=== PATIENT | female | born 1940 | race Caucasian/White ===

== ENCOUNTER 2021-06-27 13:20 | Emergency (ER) | payer MEDICARE, SELFPAY ==
--- NOTE | ~2021-06-27 | XR_ITS ---
XR abdomen/kub 1V DATE: 06/27/2021 13:46 INDICATION: Lower abdominal pain. Constipation for one week. TECHNIQUE: 2 portable supine AP views of the abdomen and pelvis COMPARISON: 09/20/2016 KUB FINDINGS: There is a prominent amount of fecal material within the colon but no evidence of bowel obs truction. The psoas shadows are intact. No visceromegaly is detected. Bilateral calcified pelvic phleboliths. Heart size is normal. The lung bases appear clear. Bilateral bipolar hip replacements. IMPRESSION: Prominent amount of fecal material in the colon; no bowel obstruction Reviewed, dictated and finalized at [facility]. Reviewed, dictated and finalized at location A. IMPRESSION: Prominent amount of fecal material in the colon; no bowel obstructi on
[2021-06-27 13:42] VITALS: BP 113/50; PULSE 70; RESP 14; TEMP 36.5; O2SAT 99
--- NOTE | 2021-06-27 13:46 | ED.ABDPAIN ---
HPI - Abdominal Pain General Chief Complaint: Abdominal Pain Stated Complaint: constipation Time Seen by Provider: 06/27/21 13:33 Source: patient and family Mode of arrival: ambulatory Limitations: no limitations History of Present Illness HPI narrative: Pt presents with constipation. Pt says she has not had BM in a week. Pt has slowed food intake and upped fluids and tried stool softeners and enemas without relief. Pt feels like something may be blocking her anal opening as she was unable to insert the enema. MD elicited complaint: abdominal pain Pertinent past history: constipation Onset (ago): day(s) (7) Pain Consistency: intermittent and now resolved Location: diffuse Severity: moderate Quality: cramping Radiation: none Migration to: no migration Exacerbating factors: nothing Relieving factors: nothing Associated symptoms: denies other symptoms Related Data Home Medications Medication Instructions Recorded Confirmed amlodipine 5 mg tablet 5 mg PO DAILY 12/06/20 12/06/20 bupropion HCl 150 mg 24 hr tablet, 150 mg PO QAM 12/06/20 12/06/20 extended release losartan 100 mg tablet 100 mg PO DAILY 12/06/20 12/06/20 lovastatin 10 mg tablet 10 mg PO DAILY 12/06/20 12/06/20 polyethylene glycol 3350 17 17 g PO DAILY 12/06/20 12/06/20 gram/dose oral powder tramadol 50 mg tablet 50 mg PO Q6H PRN 12/06/20 12/06/20 Allergies Allergy/AdvReac Type Severity Reaction Status Date / Time niacin Allergy Mild Unknown Verified 12/06/20 14:05 simvastatin Allergy Mild Unknown Verified 12/06/20 14:05 NSAIDS (Non-Steroidal Allergy Unknown DUE TO Verified 12/06/20 14:05 Anti-Inflamma KIDNEY DISEASE Review of Systems Review of Systems: All systems reviewed & are unremarkable except as noted in HPI and below PMFSH Past Medical History Medical History (Updated 06/27/21 @ 15:40 by Stan Seals III, DO) Constipation HTN (hypertension) Surgical History Surgical History Status post total knee replacement, right Family History Family History Father Hypertension Cerebrovascular accident Mother Hypertension Cerebrovascular accident Other Family history of arthritis Social History Social History (Updated 12/06/20 @ 14:09 by Mylene Atkins CMA) Smoking status: Former smoker Smoking end date: 03/18/85 Alcohol intake: current Substance use: never Exam Const: General: no acute distress Orientation/consciousness: patient oriented x3 Resp: Effort & Inspection: normal respiratory effort Auscultation: clear to auscultation bilaterally Cardio: Rate: regular rate Rhythm: regular rhythm GI: GI Palp: Yes Soft to palpation Auscultation: normal bowel sounds Other: no tenderness to palpation rectal exam external hemmorhoids Neuro: General: patient oriented x3, moves all extremities, no meningeal signs and no focal motor deficits Speech: normal speech Extrem: General: normal to inspection Psych: Appearance: grossly normal Mental Status: mental status grossly normal Thought content: Yes Normal thought content present Course Course Emergency Course: pt had some results with enema felt better will try golytely and send home Vital Signs Vital signs: Vital Signs Temperature 97.7 F 06/27/21 13:42 Pulse Rate 70 06/27/21 13:42 Respiratory Rate 14 06/27/21 13:42 Blood Pressure 113/50 L 06/27/21 13:42 Pulse Oximetry 99 06/27/21 13:42 Temperature 97.7 F 06/27/21 13:42 Pulse Rate 76 06/27/21 15:53 Respiratory Rate 12 06/27/21 15:53 Blood Pressure 139/75 06/27/21 15:53 Pulse Oximetry 98 06/27/21 15:53 MDM - Abdominal Pain Imaging Data Radiologist's impression: ITS Impressions Abdomen X-Ray 06/27/21 13:50 IMPRESSION: Prominent amount of fecal material in the colon; no bowel obstruction Discharge Plan Discharg
[2021-06-27 15:53] VITALS: BP 139/75; PULSE 76; RESP 12; O2SAT 98
== END 2021-06-27 15:54 | disposition home or self-care (01) ==
PROVIDERS: Emergency Provider Emergency Medicine; PCP Family Medicine
DX: K59.00 Constipation, unspecified (principal); I10 Essential (primary) hypertension; Z96.651 Presence of right artificial knee joint; Z87.891 Personal history of nicotine dependence
CPT/HCPCS: 74018; 99283

== ENCOUNTER 2022-08-14 15:18 | Emergency (ER) | payer MEDICARE, SELFPAY ==
--- NOTE | ~2022-08-14 | XR_ITS ---
EXAMINATION: XR knee LT min 4V DATE: 08/14/2022 17:09 INDICATION: Left knee pain TECHNIQUE: Anteroposterior, 2 oblique and crosstable lateral views of the left knee were obtained COMPARISON: None. FINDINGS: Alignment is normal. No fracture. Tricompartmental osteoarthritis with marginal osteophytes in all 3 compartments. There is at least moderate joint space narrowing in the medial compartment, severity o f which is best appreciated on the lateral projection. Severity of joint space narrowing can however be underestimated on nonweightbearing imaging. Small enthesophytes at the patellar insertion of the d istal quadriceps tendon. A few small loose osteochondral bodies in the recess posterior to the interc ondylar notch. No joint effusion/layering lipohemarthrosis. Soft tissues are unremarkable. IMPRESSION: 1. No left knee joint effusion or acute osseous abnormality. 2. At least moderate severity medial compartment predominant tricompartmental osteoarthritis. Reviewed, dictated and finalized at location A. IMPRESSION: 1. No left knee joint effusion or acute osseous abnormality. 2. At least moderate severity medial compartment predominant tricompartmental o steoarthritis.
--- NOTE | ~2022-08-14 | XR_ITS ---
EXAMINATION: XR hip LT 2V w AP pelvis DATE: 08/14/2022 17:09 INDICATION: Several months of left hip pain TECHNIQUE: Anteroposterior view of the pelvis and anteroposterior and frog-leg lateral views of the l eft hip were obtained. 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 Alignment remains essentially anatomic. No fracture. Mild bilateral sacroiliac a nd severe lower lumbar facet osteoarthritis. Soft tissues are unremarkable. IMPRESSION: 1. 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 No acute osseous abnormality . Reviewed, dictated and finalized at location A. IMPRESSION: 1. 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 No acu te osseous abnormality.
[2022-08-14 16:16] VITALS: BP 151/66; PULSE 57; RESP 16; TEMP 36.2; O2SAT 99
--- NOTE | 2022-08-14 19:26 | ED.LOWEXIN ---
HPI - Extremity Injury (Lower) General Chief Complaint: Extremity Injury, Lower Stated Complaint: LEFT LEG NUMBNESS SINCE THIS AM (INJURED 1 MO AGO) Time Seen by Provider: 08/14/22 19:03 History of Present Illness HPI Narrative: Patient is an 81-year-old female who presents ER with left knee and leg pain. She reports she has had injury for about a month. She has been taking tramadol. She was not having pain yesterday but then started having some today. It is mainly in her knee. Its worse with bending. She reports she does a lot of gardening which may have exacerbated it. No redness or swelling to the affected extremity. No fevers or chills or sweats. She has mild numbness over the anterior portion of the thigh. No low back pain. No saddle anesthesia or urinary retention/incontinence. Related Data Home Medications Medication Instructions Recorded Confirmed amlodipine 5 mg tablet 5 mg PO DAILY 12/06/20 10/17/21 bupropion HCl 150 mg 24 hr tablet, 150 mg PO QAM 12/06/20 10/17/21 extended release losartan 100 mg tablet 100 mg PO DAILY 12/06/20 10/17/21 tramadol 50 mg tablet 50 mg PO Q6H PRN 12/06/20 10/17/21 polyethylene glycol 3350 17 17 g PO DAILY PRN constipation 10/17/21 10/17/21 gram/dose oral powder (Miralax) Allergies Allergy/AdvReac Type Severity Reaction Status Date / Time niacin Allergy Mild Unknown Verified 08/14/22 18:25 simvastatin Allergy Mild Unknown Verified 08/14/22 18:25 NSAIDS (Non-Steroidal Allergy Unknown DUE TO Verified 08/14/22 18:25 Anti-Inflamma KIDNEY DISEASE Review of Systems Review of Systems: All systems reviewed & are unremarkable except as noted in HPI and below Constitutional: Constitutional: Denies chills and Denies fever(s) Gastrointestinal: Gastrointestinal: Denies abdominal pain, Denies nausea and Denies vomiting Musculoskeletal: Musculoskeletal: Reports back pain, Reports arthralgias, Denies joint swelling and Denies muscle cramps Integumentary/Breasts: Skin/Breast: Denies pruritus and Denies rash Neurologic: Denies headache(s), Denies focal weakness and Reports numbness PMFSH Past Medical History Medical History Constipation HTN (hypertension) Loose stools Surgical History Surgical History Status post total knee replacement, right Family History Family History Father Hypertension Cerebrovascular accident Mother Hypertension Cerebrovascular accident Other Family history of arthritis Social History Social History Smoking status: Never smoker Smoking end date: 03/18/85 Alcohol intake: current Substance use: never Lack of Transportation: No Lack of Food: Never True Current Housing: I Have Housing Concerned About Future Housing: No Difficulty Paying Gas/Electric Bills: No Difficulty Paying for Meds: No Currently Unemployed: No Education: High School Diploma/GED Difficulty w/ Childcare or Family Care: No Gender identity (if verbalized by the patient): Female Exam Narrative: GENERAL: Well-appearing, well-nourished, and in no acute distress. HEAD: Normocephalic, atraumatic. CHEST: Clear to auscultation. No respiratory distress. HEART: Regular rate and rhythm. Normal peripheral pulses. Back: No reproducible midline or paraspinal muscle tenderness of the T/L-spine. EXTREMITIES: Normal range of motion. No edema. Sensation intact. No effusion of the knee bilaterally. SKIN: Warm, dry, no rash. NEURO: Alert and oriented x3. PSYCH: Normal mood and affect. Course Course Emergency Course: Patient resting comfortably and anxious to leave. Discussed imaging and recommend follow-up with PCP. Discussed conservative treatment plan. Patient reports mild CKD and so should be on a low-dose and shor
== END 2022-08-14 19:51 | disposition home or self-care (01) ==
PROVIDERS: Emergency Provider Emergency Medicine; PCP Family Medicine
DX: M17.12 Unilateral primary osteoarthritis, left knee (principal); I12.9 Hypertensive chronic kidney disease with stage 1 through stage 4 chronic kidney disease, or unspecified chronic kidney disease; N18.9 Chronic kidney disease, unspecified; Z96.651 Presence of right artificial knee joint; Z96.642 Presence of left artificial hip joint
CPT/HCPCS: 73502; 73564; 99284

== ENCOUNTER 2022-12-07 09:48 | Emergency (ER) | payer MEDICARE, SELFPAY ==
[2022-12-07 10:02] VITALS: BP 166/81; PULSE 63; RESP 16; TEMP 36.8; O2SAT 100
[2022-12-07 10:05] VITALS: BP 166/81; PULSE 61; RESP 16; TEMP 36.7; O2SAT 100
--- NOTE | 2022-12-07 10:10 | ECG_ITS ---
Measurements Intervals Palmer Rate: 60 P: 53 MI: 166 QRS: -4 QRSD: 101 T: 51 QT: 405 QTc: 405 Interpretive Statements SINUS RHYTHM NORMAL ECG COMPARED TO ECG 09/19/2018 14:09:13 NO SIGNIFICANT CHANGES Electronically Signed On 12-07-2022 10:12:16 CDT by Leonid Weems D.O.
[2022-12-07 10:20] VITALS: PULSE 61
[2022-12-07 10:25] LABS: Basophils Percent Auto 0.2 % (0.2-1.2); Eosinophils Absolute Auto 0.1 K/mm3 (0-0.3); Eosinophils Percent Auto 0.4 % (0-4.4); Hematocrit 43.4 % (37.0-47.0); Hemoglobin 14.1 g/dL (12.0-15.0); Immature Granulocyte Absolute 0.08 K/mm3 (0.00-0.031); Immature Granulocyte Percent A 0.6 % (0-0.5); Lymphocytes Absolute Auto 1.27 K/mm3 (0.9-3.2); Lymphocytes Percent Auto 8.9 % (18.3-44.2); Mean Corpuscular HGB Conc 32.5 g/dl (32-36); Mean Corpuscular Hemoglobin 30.7 pg (26-34); Mean Corpuscular Volume 94.6 fl (80-100); Monocytes Absolute Auto 0.7 K/mm3 (0.1-0.6); Monocytes Percent Auto 4.8 % (2.6-8.5); Neutrophils Absolute Auto 12.1 K/mm3 (1.3-6.7); Neutrophils Percent Auto 85.1 % (45.5-73.1); Platelet Count Result 280 k/mm3 (150-375); Red Blood Count 4.59 M/mm3 (4.2-5.4); Red Cell Distribution Width 13.6 % (11.5-14.5); White Blood Count 14.2 K/mm3 (4.5-10.0)
[2022-12-07 10:36] LABS: Alanine Aminotransferase 24 U/L (6-35); Albumin Level 4.7 g/dL (3.5-5.1); Alkaline Phosphatase 85 U/L (38-126); Anion Gap 11 mmol/L (8-16); Aspartate Amino Transferase 25 U/L (14-36); Bilirubin,Total 0.7 mg/dL (0.2-1.3); Blood Urea Nitrogen 18 mg/dL (7-17); Calcium 9.7 mg/dL (8.4-10.2); Carbon Dioxide 24 mmol/L (22-30); Chloride 101 mmol/L (98-107); Estimated CRCL calculation 37 ml/min; Estimated Glomerular Filt Rate 60; Glucose 111 mg/dL (65-110); Potassium 3.7 mmol/L (3.4-5.0); Sodium 136 mmol/L (137-145)
--- NOTE | 2022-12-07 10:36 | ED.GENADULT ---
HPI - General Adult General Chief complaint: Arrhythmia/Palpitations Stated complaint: palpitations Time Seen by Provider: 12/07/22 10:13 History of Present Illness HPI narrative: Mylene Alvarez is an 82 y/o female who presents with reports of feeling her blood pressure rising off and on the past few weeks, along with some intermittent heart palpitations to her epigastric area, no chest pain/ shortness of breath/nausea/vomiting. No hx of TN/ cardiac stents/ cardiac surgeries/ not on anticoagulants Related Data Home Medications Medication Instructions Recorded Confirmed amlodipine 5 mg tablet 5 mg PO DAILY 12/06/20 10/18/22 bupropion HCl 150 mg 24 hr tablet, 150 mg PO QAM 12/06/20 10/18/22 extended release losartan 100 mg tablet 100 mg PO DAILY 12/06/20 10/18/22 tramadol 50 mg tablet 50 mg PO Q6H PRN 12/06/20 10/18/22 polyethylene glycol 3350 17 17 g PO DAILY PRN constipation 10/17/21 10/18/22 gram/dose oral powder (Miralax) levothyroxine 100 mcg capsule 100 mcg PO DAILY 10/09/22 10/18/22 Allergies Allergy/AdvReac Type Severity Reaction Status Date / Time niacin Allergy Mild Unknown Verified 12/07/22 09:49 simvastatin Allergy Mild Unknown Verified 12/07/22 09:49 NSAIDS (Non-Steroidal Allergy Unknown DUE TO Verified 12/07/22 09:49 Anti-Inflamma KIDNEY DISEASE Review of Systems Review of Systems: CONSTITUTIONAL: Denies fever, chills, or sweats. EYES: Denies visual changes, redness, or discharge. ENT: Denies rhinorrhea, congestion, sore throat, or otalgia. CARDIOVASCULAR: Denies chest pain, reports of palpitations off and on for the past 2 weeks no edema. RESPIRATORY: Denies cough or dyspnea. GASTROINTESTINAL: Denies abdominal pain, nausea, vomiting, or diarrhea. GENITOURINARY: Denies dysuria or hematuria. SKIN: Denies rash or itching. MUSCULOSKELETAL: Denies back pain, joint pain, or myalgia. NEUROLOGIC: Denies headache, numbness, dizziness, or weakness. PSYCHIATRIC: Denies anxiety or depression. [facility] Past Medical History Medical History Constipation HTN (hypertension) Loose stools Surgical History Surgical History Status post total knee replacement, right Family History Family History Father Hypertension Cerebrovascular accident Mother Hypertension Cerebrovascular accident Other Family history of arthritis Social History Social History Smoking status: Never smoker Smoking end date: 03/18/85 Alcohol intake: current Substance use: never Lack of Transportation: No Lack of Food: Never True Current Housing: I Have Housing Concerned About Future Housing: No Difficulty Paying Gas/Electric Bills: No Difficulty Paying for Meds: No Currently Unemployed: No Education: High School Diploma/GED Difficulty w/ Childcare or Family Care: No Living arrangements: with family Occupation/Education: retired Gender identity (if verbalized by the patient): Female Exam Narrative: GENERAL: Well-appearing, well-nourished, and in no acute distress. HEAD: Normocephalic, atraumatic. EYES: PERRLA and EOMI. ENT: Nares clear, no rhinorrhea or epistaxis. Mucous membranes moist. Oropharynx without tonsillar hypertrophy exudate or other lesions. NECK: Supple. No adenopathy or masses. No carotid bruits or JVD CHEST: Clear to auscultation. No respiratory distress. No wheezes rales or rhonchi HEART: Regular rate and rhythm. No murmur heard. Normal peripheral pulses. ABDOMEN: Soft, nontender, nondistended, normal active bowel sounds. EXTREMITIES: Normal range of motion. No edema. SKIN: Warm, dry, no rash. NEURO: No focal deficits. Alert and oriented x3. PSYCH: Normal mood and affect. Course Vital Signs Vital signs: Vital Signs Temperature 36.8 C
[2022-12-07 10:45] VITALS: PULSE 61; RESP 12; O2SAT 98
[2022-12-07 10:48] LABS: Troponin I < 0.012 ng/mL (0.000-0.034)
--- NOTE | 2022-12-07 11:16 | PC.NURSE ---
Pt ambulated to BR with assist. Pt reports dizziness while standing & walking. Denies CP with dizziness
[2022-12-07 12:19] VITALS: BP 127/63; PULSE 54; RESP 15; TEMP 36.9; O2SAT 97
[2022-12-07 12:33] LABS: Appearance Urine Clear (Clear); Bilirubin Urine Negative (Negative); Blood Urine Negative (Negative); Color Urine Yellow (Yellow); Glucose Urine UA Negative (Negative); Ketones Urine Negative (Negative); Leukocyte Esterase Ur Negative LEU/UL (Negative); Nitrate Urine Negative (Negative); Protein Urine Negative (Negative); Specific Grav Ur 1.005 (1.001-1.035); Urobilinogen Urine 0.2 mg/dL (<2.0)
[2022-12-07 12:43] LABS: Add Urine Microscopic? NO
[2022-12-07 13:45] VITALS: BP 158/87; PULSE 58; RESP 16; O2SAT 97
[2022-12-07 13:46] LABS: Prothrombin Time 13.6 Seconds (11.1-14.7)
[2022-12-07 13:59] LABS: Lipase 72 U/L (23-300)
[2022-12-07 14:11] LABS: Troponin I < 0.012 ng/mL (0.000-0.034)
[2022-12-07 14:14] LABS: NT Pro B Type Natriuretic Pept 292 pg/mL (19.9-100)
--- NOTE | 2022-12-11 16:34 | WPDHOLTEREM ---
Holter/Event Monitor Holter/Event Monitor Date of procedure: 12/07/22 Holter/Event Procedure: 48 Hr Holter Monitor Indications: Palpitations Conclusion: 1. 48 hour holter monitor on 12/07/22. 2. Underlying rhythm is sinus rhythm. HR range 43-98 bpm; average HR 62 bpm. HR at 43 bpm was at 23:50. 3. There are 330 premature supraventricular complexes. No supraventricular tachycardia. 4. There are 1,338 premature ventricular complexes, 1 ventricular couplet and 11 ventricular trigeminy. No ventricular tachycardia 5. No sinoatrial or atrioventricular blocks. No significant pauses greater than 2 seconds. 6. No symptoms available for correlation.
== END 2022-12-07 14:50 | disposition home or self-care (01) ==
PROVIDERS: Emergency Medicine; Emergency Provider Nurse Practitioner Family; PCP Family Medicine
DX: R00.2 Palpitations (principal); I10 Essential (primary) hypertension; E78.5 Hyperlipidemia, unspecified; Z96.651 Presence of right artificial knee joint; Z87.891 Personal history of nicotine dependence
CPT/HCPCS: 36415; 80053; 81003; 83690; 83880; 84484; 85025; 85610; 85730; 93005; 93225; 93226; 99284

== ENCOUNTER 2023-06-09 14:24 | Emergency (ER) | payer MEDICARE, SELFPAY ==
--- NOTE | ~2023-06-09 | CT_ITS ---
EXAMINATION: CT abdomen pelvis wo con DATE: 06/09/2023 15:56 INDICATION: Constipation TECHNIQUE: Computed tomography (CT) of the abdomen and pelvis was performed without intravenous contr ast. Automated exposure control and iterative reconstruction technique were employed. The dose-length product was 361.75 mGy-cm. COMPARISON: None. FINDINGS: Lower thorax: Ascending aortic ectasia. Coronary artery calcification. Liver: Normal. Biliary/Gallbladder: Gallbladder is normal. No bile duct dilation. Pancreas: No mass or duct dilation. Spleen: Granulomatous calcifications. Adrenals:No mass. Kidneys: No suspicious mass, obstructing stone, or hydronephrosis. GI tract: No small or large bowel dilation. Moderate volume of colonic fecal material. Normal appendi x. Diverticulosis without diverticulitis. Mesentery/Peritoneum: No ascites, mass, or free air. Retroperitoneum: No mass. Atherosclerotic abdominal aortic and/or arterial calcifications. Pelvis: Pelvic organs obscured by metal artifact from bilateral hip arthroplasties. Soft Tissues: Soft tissues and body wall unremarkable. Bones: No acute osseous finding. IMPRESSION: No acute abdominopelvic process detected. Moderate volume of colonic feces, correlate for clinical findings of constipation. Reviewed, dictated and finalized at location K. IMPRESSION: No acute abdominopelvic process detected. Moderate volume of colonic feces, correlate for clinical findings of constipati on.
[2023-06-09 14:43] VITALS: BP 179/71; PULSE 76; RESP 18; TEMP 36.4; O2SAT 100
--- NOTE | 2023-06-09 15:33 | ED.GENADULT ---
HPI - General Adult General Chief complaint: Unspecified Stated complaint: constipation Time Seen by Provider: 06/09/23 15:10 Source: patient Mode of arrival: ambulatory Limitations: no limitations History of Present Illness HPI narrative: 82-year-old female with long history of constipation presenting for constipation. Says it has been getting worse for the last few months and even worse for the last few days. She has been full in her abdomen as not wanting to eat for the last few days. Last bowel movement 4 days ago. Typically can manually disimpact herself, uses a variety of different laxatives and enemas but none have been successful today. Try to disimpact herself today and found no stool in the rectal vault she could feel. Related Data Home Medications Medication Instructions Recorded Confirmed amlodipine 5 mg tablet 5 mg PO DAILY 12/06/20 04/11/23 bupropion HCl 150 mg 24 hr tablet, 150 mg PO QAM 12/06/20 04/11/23 extended release losartan 100 mg tablet 100 mg PO DAILY 12/06/20 04/11/23 tramadol 50 mg tablet 50 mg PO Q6H PRN 12/06/20 04/11/23 polyethylene glycol 3350 17 17 g PO DAILY PRN constipation 10/17/21 04/11/23 gram/dose oral powder (Miralax) levothyroxine 100 mcg capsule 100 mcg PO DAILY 10/09/22 04/11/23 Allergies Allergy/AdvReac Type Severity Reaction Status Date / Time niacin Allergy Mild Unknown Verified 04/10/23 13:22 simvastatin Allergy Mild Unknown Verified 04/10/23 13:22 NSAIDS (Non-Steroidal Allergy Unknown DUE TO Verified 04/10/23 13:22 Anti-Inflamma KIDNEY DISEASE Review of Systems Review of Systems: All systems reviewed & are unremarkable except as noted in HPI and below PMFSH Past Medical History Medical History Constipation HTN (hypertension) Loose stools Surgical History Surgical History Status post total knee replacement, right Family History Family History Father Hypertension Cerebrovascular accident Mother Hypertension Cerebrovascular accident Other Family history of arthritis Social History Social History Smoking status: Never smoker Smoking end date: 03/18/85 Alcohol intake: current Substance use: never Do You Feel Safe in your Home?: Yes Lack of Transportation: No Lack of Food: Never True Current Housing: I Have Housing Concerned About Future Housing: No Difficulty Paying Gas/Electric Bills: No Difficulty Paying for Meds: No Currently Unemployed: No Education: High School Diploma/GED Difficulty w/ Childcare or Family Care: No Living arrangements: with family Occupation/Education: retired Gender identity (if verbalized by the patient): Female Exam Narrative: Constitutional: Generally well appearing, no acute distress Head: Atraumatic, no deformities. Eyes: Pupils equal, round, and reactive to light. Neck: Supple, no tracheal deviation, no JVD. ENMT: Mucous membranes moist Cardiovascular: S1, S2 auscultated. No murmurs, rubs, or gallops. No S3/S4. Normal Distal pulses. No peripheral edema. Respiratory: Lung sounds equal. No wheezes, rales, or rhonchi. Gastrointestinal: Abdomen was soft, nondistended Musculoskeletal: Normal muscle tone and bulk. No obvious deformities over extremities. Skin: No rashes. Neurological: Strength 5/5 in extremities. Distal sensation intact. Mental Status: Awake, alert and oriented x3. Follows commands Course Vital Signs Vital signs: Vital Signs Temperature 36.4 C 06/09/23 14:43 Pulse Rate 76 06/09/23 14:43 Respiratory Rate 18 06/09/23 14:43 Blood Pressure 179/71 H 06/09/23 14:43 Pulse Oximetry 100 06/09/23 14:43 Temperature 36.4 C 06/09/23 14:43 Pulse Rate 76 06/09/23 14:43 Respiratory Rate 18 06/09/23 14:43
== END 2023-06-09 16:40 | disposition home or self-care (01) ==
PROVIDERS: Emergency Provider Emergency Medicine; PCP Family Medicine
DX: K59.00 Constipation, unspecified (principal); I10 Essential (primary) hypertension; Z96.651 Presence of right artificial knee joint; Z87.891 Personal history of nicotine dependence
CPT/HCPCS: 74176; 99284

== ENCOUNTER 2023-09-24 09:32 | Outpatient (CLI) | payer MEDICARE, SELFPAY ==
[2023-09-24 13:06] LABS: Hematocrit 43.1 % (37.0-47.0); Mean Corpuscular HGB Conc 32.5 g/dl (32-36); Mean Corpuscular Hemoglobin 30.9 pg (26-34); Mean Corpuscular Volume 95.1 fl (80-100); Mean Platelet Volume 12.5 fl (7.4-10.4); Platelet Count Result 190 k/mm3 (150-375); Red Blood Count 4.53 M/mm3 (4.2-5.4); Red Cell Distribution Width 13.7 % (11.5-14.5); White Blood Count 4.9 K/mm3 (4.5-10.0)
[2023-09-24 13:15] LABS: Alanine Aminotransferase 17 U/L (6-35); Albumin Level 4.5 g/dL (3.5-5.1); Albumin Level 4.6 g/dL (3.5-5.1); Alkaline Phosphatase 88 U/L (38-126); Anion Gap 10 mmol/L (4-12); Anion Gap 11 mmol/L (4-12); Aspartate Amino Transferase 30 U/L (14-36); Bilirubin,Total 0.7 mg/dL (0.2-1.3); Blood Urea Nitrogen 15 mg/dL (7-17); Blood Urea Nitrogen 16 mg/dL (7-17); Calcium 9.5 mg/dL (8.4-10.2); Calcium 9.6 mg/dL (8.4-10.2); Carbon Dioxide 26 mmol/L (22-30); Chloride 101 mmol/L (98-107); Chloride 102 mmol/L (98-107); Cholesterol 175 mg/dL (0-200); Estimated Glomerular Filt Rate 47; Glucose 90 mg/dL (65-110); Glucose 91 mg/dL (65-110); HDL Direct 70 mg/dL; Phosphorus 3.2 mg/dL (2.5-4.5); Potassium 4.1 mmol/L (3.4-5.0); Sodium 138 mmol/L (137-145); Triglycerides 55 mg/dL (<150)
[2023-09-24 13:26] LABS: LDL Cholesterol Direct 85 mg/dL; Parathyroid Intact 32.4 pg/mL (7.5-53.5)
[2023-09-24 13:32] LABS: Creatinine Urine 46.6 mg/dL; Total Protein Urine Random 11 mg/dL; Ur Ttl Prot Creatinine Ratio 0.24 mg/mg (0-0.20)
[2023-09-25 18:29] LABS: Hemoglobin A1C 6.1 % (<5.7)
[2023-09-26 06:19] LABS: TSH QUEST 1.07 mIU/L (0.40-4.50)
[2023-09-27 13:24] LABS: Vitamin D 1,25 (OH)2 Total 47 pg/mL (18-72); Vitamin D2 1,25 (OH)2 <8 pg/mL; Vitamin D3 1,25 (OH)2 47 pg/mL
== END 2023-09-24 09:33 | disposition home or self-care (01) ==
PROVIDERS: PCP Family Medicine; Visit Provider Internal Medicine Nephrology
DX: E78.5 Hyperlipidemia, unspecified (principal); Z96.651 Presence of right artificial knee joint; E55.9 Vitamin D deficiency, unspecified; E89.0 Postprocedural hypothyroidism; R73.03 Prediabetes; I12.9 Hypertensive chronic kidney disease with stage 1 through stage 4 chronic kidney disease, or unspecified chronic kidney disease; N18.31 Chronic kidney disease, stage 3a
CPT/HCPCS: 36415; 80053; 80061; 80069; 82570; 82652; 83036; 83970; 84156; 84481; 85027; 86376

== ENCOUNTER 2024-01-26 06:36 | Emergency (ER) | payer MEDICARE, SELFPAY ==
--- NOTE | ~2024-01-26 | CT_ITS ---
CT of the Abdomen and Pelvis: Indication: Constipation Technique: 2.5 mm axial scans were obtained through the abdomen and pelvis following intravenous adm inistration of 100 cc of Omnipaque 350. Dose reduction technique was used on this scan by utilizing a utomated exposure control and iterative reconstruction technique. The dose-length product (DLP) was 2 64.28 mGy-cm. COMPARISON: 06/09/2023 Findings: Scans through the lung bases are unremarkable. The liver, spleen, pancreas, gallbladder, adrenals and kidneys are within normal limits. There are at herosclerotic calcifications of the aorta. No lymphadenopathy. No bowel obstruction or bowel wall thickening. Prominent stool suggests constipation. There is mild d iverticulosis. Small ventral fat-containing hernia present superior to the umbilicus. Images through the pelvis are degraded by streak artifact from bilateral hip arthroplasty. No pelvic mass evident. Urinary bladder grossly normal. No ascites evident. Impression: Constipation. No other acute abnormality evident. Small ventral fat-containing hernia, superior to the umbilicus. Reviewed, dictated and finalized at location M. L PRODUCER Impression: Constipation. No other acute abnormality evident. Small ventral fat-containing hernia, superior to the umbilicus.
[2024-01-26 06:45] VITALS: BP 182/86; PULSE 78; RESP 15; TEMP 36.7; O2SAT 99
[2024-01-26 07:18] VITALS: BP 171/72; PULSE 67; RESP 18; O2SAT 100
[2024-01-26 07:22] LABS: Basophils Absolute Auto 0.1 K/mm3 (0.0-0.1); Basophils Percent Auto 0.9 % (0.2-1.2); Eosinophils Absolute Auto 0.1 K/mm3 (0-0.3); Eosinophils Percent Auto 1.8 % (0-4.4); Hemoglobin 13.9 g/dL (12.0-15.0); Immature Granulocyte Absolute 0.07 K/mm3 (0.00-0.031); Immature Granulocyte Percent A 1.2 % (0-0.5); Lymphocytes Absolute Auto 1.17 K/mm3 (0.9-3.2); Lymphocytes Percent Auto 20.7 % (18.3-44.2); Mean Corpuscular HGB Conc 32.3 g/dl (32-36); Mean Corpuscular Hemoglobin 30.4 pg (26-34); Mean Corpuscular Volume 94.1 fl (80-100); Mean Platelet Volume 10.7 fl (7.4-10.4); Monocytes Absolute Auto 0.5 K/mm3 (0.1-0.6); Monocytes Percent Auto 9.4 % (2.6-8.5); Neutrophils Absolute Auto 3.7 K/mm3 (1.3-6.7); Platelet Count Result 237 k/mm3 (150-375); Red Blood Count 4.57 M/mm3 (4.2-5.4); Red Cell Distribution Width 13.7 % (11.5-14.5); White Blood Count 5.7 K/mm3 (4.5-10.0)
--- NOTE | 2024-01-26 07:24 | ED.GENADULT ---
HPI - General Adult General Chief complaint: Unspecified Stated complaint: Constipated; last BM few days Time Seen by Provider: 01/26/24 06:53 History of Present Illness HPI narrative: 83-year-old female with history of alternating constipation and diarrhea presents emergency department for evaluation for constipation over the course of the last week. patient has been taking Dulcolax and MiraLax but states she has not had a significant bowel movement. Patient does report the sensation of needing to have a bowel movement. Patient also describes abdominal cramping. Patient appears to be in no distress and is resting comfortably. Patient does not have a GI physician. Related Data Home Medications Medication Instructions Recorded Confirmed polyethylene glycol 3350 17 17 g PO DAILY PRN constipation 10/17/21 10/09/23 gram/dose oral powder (Miralax) levothyroxine 100 mcg capsule 100 mcg PO DAILY 10/09/22 10/09/23 cholecalciferol (vitamin D3) 25 25 mcg PO DAILY 09/24/23 10/09/23 mcg (1,000 unit) capsule Allergies Allergy/AdvReac Type Severity Reaction Status Date / Time niacin Allergy Mild Itching Verified 01/26/24 06:48 simvastatin Allergy Mild Muscle Pain Verified 01/26/24 06:48 NSAIDS (Non-Steroidal Allergy Unknown DUE TO Verified 01/26/24 06:48 Anti-Inflamma KIDNEY DISEASE Review of Systems Review of Systems: All systems reviewed & are unremarkable except as noted in HPI and below PMFSH Past Medical History Medical History Constipation HTN (hypertension) Loose stools Surgical History Surgical History Status post total knee replacement, right Family History Family History Father Hypertension Heart disease Mother Hypertension Cerebrovascular accident Other Family history of arthritis Social History Social History Years smoked: 15 Smoking status: Never smoker Smoking end date: 03/18/85 Alcohol intake: current Drinks per week: 2 Alcohol use details: ivory Substance use: never Do You Feel Safe in your Home?: Yes Lack of Transportation: No Lack of Food: Never True Current Housing: I Have Housing Concerned About Future Housing: No Difficulty Paying Gas/Electric Bills: No Difficulty Paying for Meds: No Currently Unemployed: No Education: High School Diploma/GED Difficulty w/ Childcare or Family Care: No Living arrangements: with family Occupation/Education: retired Gender identity (if verbalized by the patient): Female Exam Narrative: APPEARANCE: Well appearing, no pain, no distress, well-nourished. HEAD: normocephalic, atraumatic. EYES: PERRLA/EOMI, conjunctivae clear. NOSE: Normal no drainage EARS:TMS clear with good light reflex. THROAT: Pharynx clear, no exudate. NECK: Supple. No adenopathy, no masses. RESPIRATORY: Airway patent, respirations nonlabored. Clear to auscultation bilaterally, no rales, rhonchi, wheezing. CARDIOVASCULAR: Regular rate and rhythm without murmurs rubs or gallops. ABDOMINAL: Soft, nontender, nondistended, normal bowel sounds MUSCULOSKELETAL: Moves all extremities. Strength/ROM intact, No edema, No calf tenderness. NEURO: Alert. Cranial nerves II through XII intact. Good gait. Good coordination SKIN: Warm, dry. Normal Color Rectal exam: No impacting stool within the rectal vault Course Vital Signs Vital signs: Vital Signs Temperature 98.1 F 01/26/24 06:45 Pulse Rate 78 01/26/24 06:45 Respiratory Rate 15 01/26/24 06:45 Blood Pressure 182/86 H 01/26/24 06:45 Pulse Oximetry 99 01/26/24 06:45 Oxygen Delivery Room Air 01/26/24 06:45 Temperature 98.1 F 01/26/24 06:45 Pulse Rate 62 01/26/24 09:32 Respiratory Rate 17 01/26/24 09:32 Blood Pressure 157/79 H 01/26/24 09:32 Pulse Oximetry 100 01/26/24 09:32 Oxygen Delivery Room Air 01/26/24 06:45 Medical Decision Making [facility] Narrative Medical decision making narrative: [age] old female presents to the emergency department for evaluation for constipation. Patient is afebrile with no leukocytosis and hemoglobin of 13.9. Patient has an INR 1.0. No acute abnormalities on the patient's CMP UA was negative for infection. CT abdomen pelvis shows constipation with no other acute abnormality. Digital rectal exam revealed no rectal stool ball amenable to disimpaction. Patient was advised to increase her MiraLax dosing. Patient was also encouraged close follow-up with her primary care physician. All questions concerns were addressed. Differential Diagnosis Differential Diagnosis: Colitis, diverticulitis, obstruction, constipation Vital Signs Vital Signs: Vital Signs Temperature 98.1 F 01/26/24 06:45 Pulse Rate 78 01/26/24 06:45 Respiratory Rate 15 01/26/24 06:45 Blood Pressure 182/86 H 01/26/24 06:45 Pulse Oximetry 99 01/26/24 06:45 Oxygen Delivery Room Air 01/26/24 06:45 Temperature 98.1 F 01/26/24 06:45 Pulse Rate 62 01/26/24 09:32 Respiratory Rate 17 01/26/24 09:32 Blood Pressure 157/79 H 01/26/24 09:32 Pulse Oximetry 100 01/26/24 09:32 Oxygen Delivery Room Air 01/26/24 06:45 Lab Data Lab results reviewed: Yes I reviewed the patient's lab results. 01/26/24 07:15 01/26/24 07:15 Labs: Lab Results 01/26/24 01/26/24 Range/Units 07:15 07:44 WBC 5.7 (4.5-10.0) K/mm3 RBC 4.57 (4.2-5.4) M/mm3 Hgb 13.9 (12.0-15.0) g/dL Hct 43.0 (37.0-47.0) % MCV 94.1 (80-100) fl MCH 30.4 (26-34) pg MCHC 32.3 (32-36) g/dl RDW 13.7 (11.5-14.5) % Plt Count 237 (150-375) k/mm3 MPV 10.7 H (7.4-10.4) fl Immature Gran % (Auto) 1.2 H (0-0.5) % Neut % (Auto) 66.0 (45.5-73.1) % Lymph % (Auto) 20.7 (18.3-44.2) % Rich % (Auto) 9.4 H (2.6-8.5) % Eos % (Auto) 1.8 (0-4.4) % Baso % (Auto) 0.9 (0.2-1.2) % Lymph # (Auto) 1.17 (0.9-3.2) K/mm3 Rich # (Auto) 0.5 (0.1-0.6) K/mm3 Eos # (Auto) 0.1 (0-0.3) K/mm3 Baso # (Auto) 0.1 (0.0-0.1) K/mm3 Abs Immat Gran (auto) 0.07 H (0.00-0.031) K/mm3 Absolute Neuts (auto) 3.7 (1.3-6.7) K/mm3 Absolute Nucleated RBC 0.000 (0.0-0.012) K/mm3 Nucleated RBC % 0.0 (0.0-0.2) % PT 13.5 (11.1-14.7) Seconds INR 1.0 APTT 28.3 (22.3-36.8) Seconds Sodium 138 (137-145) mmol/L Potassium 3.9 (3.4-5.0) mmol/L Chloride 104 (98-107) mmol/L Carbon Dioxide 25 (22-30) mmol/L Anion Gap 9 (4-12) mmol/L BUN 11 (7-17) mg/dL Creatinine 0.90 (0.7-1.0) mg/dL Estim Creat Clear Calc 35 ml/min Estimated GFR 60 (59 - ) Glucose 101 (65-110) mg/dL Calcium 9.6 (8.4-10.2) mg/dL Total Bilirubin 0.6 (0.2-1.3) mg/dL AST 23 (14-36) U/L ALT 17 (6-35) U/L Alkaline Phosphatase 75 (38-126) U/L Total Protein 8.0 (6.3-8.2) g/dL Albumin 4.2 (3.5-5.1) g/dL Urine Color Yellow (Yellow) Urine Appearance Clear (Clear) Urine pH 7.5 (5.0-9.0) Ur Specific [place] 1.005 (1.001-1.035) Urine Protein Negative (Negative) mg/dL Urine Glucose (UA) Negative (Negative) mg/dL Urine Ketones Negative (Negative) mg/dL Ur Blood (Man) Negative (Negative) Urine Nitrate Negative (Negative) Urine Bilirubin Negative (Negative) Urine Urobilinogen 0.2 (<2.0) mg/dL Leukocyte Esterase Rfl Negative (Negative) WARREN/UL Imaging Data Radiologist's impression: Impressions Abdomen/Pelvis CT 01/26/24 08:43 Impression: Constipation. No other acute abnormality evident. Small ventral fat-containing hernia, superior to the umbilicus. Discharge Plan Discharge Clinical Impression: Constipation Patient Disposition: Home, Self-Care Condition: Stable Instructions: Antibiotic Form, Constipation (ED) Additional Instructions: Increase your natural fiber intake. Increase your MiraLax dosing to at least 3 doses a day. Increase your water intake. If these do not help to resolve your constipation then I do recommend magnesium citrate as directed. Have close follow-up with your primary care physician. If you have any worsening symptoms then please call or return to the emergency department. Prescriptions: No Action polyethylene glycol 3350 [Miralax] 17 gram/dose powder 17 g PO DAILY PRN (Reason: constipation) levothyroxine 100 mcg capsule 100 mcg PO DAILY cholecalciferol (vitamin D3) 25 mcg (1,000 unit) capsule 25 mcg PO DAILY amlodipine 5 mg tablet 5 mg PO DAILY Qty: 90 1RF losartan 100 mg tablet 100 mg PO DAILY Qty: 90 1RF lovastatin 10 mg tablet 10 mg PO DAILY Qty: 90 1RF tramadol 50 mg tablet 50 mg PO Q6H PRN (Reason: pain) Qty: 60 0RF bupropion HCl 300 mg tablet extended release 24 hr 300 mg PO QAM Qty: 90 1RF diphenoxylate-atropine 2.5-0.025 mg tablet 1 tablet PO DAILY Qty: 30 1RF Follow-up/Referrals: Karine Schneider DO [Primary Care Provider] -
[2024-01-26 07:37] LABS: Prothrombin Time 13.5 Seconds (11.1-14.7)
[2024-01-26 07:38] LABS: Partial Thromboplastin Time 28.3 Seconds (22.3-36.8)
[2024-01-26 07:40] LABS: Alanine Aminotransferase 17 U/L (6-35); Albumin Level 4.2 g/dL (3.5-5.1); Alkaline Phosphatase 75 U/L (38-126); Anion Gap 9 mmol/L (4-12); Aspartate Amino Transferase 23 U/L (14-36); Bilirubin,Total 0.6 mg/dL (0.2-1.3); Blood Urea Nitrogen 11 mg/dL (7-17); Calcium 9.6 mg/dL (8.4-10.2); Carbon Dioxide 25 mmol/L (22-30); Chloride 104 mmol/L (98-107); Estimated CRCL calculation 35 ml/min; Estimated Glomerular Filt Rate 60; Glucose 101 mg/dL (65-110); Potassium 3.9 mmol/L (3.4-5.0); Sodium 138 mmol/L (137-145)
[2024-01-26 07:50] LABS: Add Urine Microscopic? NO; Appearance Urine Clear (Clear); Bilirubin Urine Negative (Negative); Blood Urine Negative (Negative); Color Urine Yellow (Yellow); Glucose Urine UA Negative (Negative); Ketones Urine Negative (Negative); Leukocyte Esterase Ur Negative LEU/UL (Negative); Nitrate Urine Negative (Negative); Protein Urine Negative (Negative); Specific Grav Ur 1.005 (1.001-1.035); Urobilinogen Urine 0.2 mg/dL (<2.0); pH Urine 7.5 (5.0-9.0)
[2024-01-26 09:32] VITALS: BP 157/79; PULSE 62; RESP 17; O2SAT 100
== END 2024-01-26 09:33 | disposition home or self-care (01) ==
PROVIDERS: Emergency Provider Emergency Medicine; PCP Family Medicine
DX: K59.00 Constipation, unspecified (principal); R10.9 Unspecified abdominal pain; I10 Essential (primary) hypertension; Z96.651 Presence of right artificial knee joint; Z87.891 Personal history of nicotine dependence; K43.9 Ventral hernia without obstruction or gangrene
CPT/HCPCS: 36415; 74177; 80053; 81003; 85025; 85610; 85730; 99284; Q9967

== ENCOUNTER 2024-03-30 10:08 | Outpatient (CLI) | payer MEDICARE, SELFPAY ==
[2024-03-30 13:46] LABS: Hematocrit 41.4 % (37.0-47.0); Hemoglobin 13.1 g/dL (12.0-15.0); Mean Corpuscular HGB Conc 31.6 g/dl (32-36); Mean Corpuscular Hemoglobin 30.9 pg (26-34); Mean Corpuscular Volume 97.6 fl (80-100); Mean Platelet Volume 11.4 fl (7.4-10.4); Platelet Count Result 245 k/mm3 (150-375); Red Blood Count 4.24 M/mm3 (4.2-5.4); Red Cell Distribution Width 14.1 % (11.5-14.5); White Blood Count 5.8 K/mm3 (4.5-10.0)
[2024-03-30 14:20] LABS: Creatinine Urine 44.9 mg/dL; Total Protein Urine Random 13 mg/dL; Ur Ttl Prot Creatinine Ratio 0.29 mg/mg (0-0.20)
[2024-03-30 14:46] LABS: Parathyroid Intact 37.7 pg/mL (14.5-75.2)
[2024-03-30 14:51] LABS: Albumin Level 4.1 g/dL (3.5-5.1); Anion Gap 4 mmol/L (4-12); Blood Urea Nitrogen 22 mg/dL (7-17); Calcium 9.2 mg/dL (8.4-10.2); Carbon Dioxide 30 mmol/L (22-30); Chloride 104 mmol/L (98-107); Estimated Glomerular Filt Rate 55; Glucose 67 mg/dL (65-110); Phosphorus 3.9 mg/dL (2.5-4.5); Potassium 4.2 mmol/L (3.4-5.0); Sodium 138 mmol/L (137-145)
== END 2024-03-30 10:09 | disposition home or self-care (01) ==
LOC: ANHGOSHLAB 10:09
PROVIDERS: PCP Family Medicine; Visit Provider Internal Medicine Nephrology
DX: N18.31 Chronic kidney disease, stage 3a (principal)
CPT/HCPCS: 36415; 80069; 82570; 83970; 84156; 85027

== ENCOUNTER 2024-05-26 10:10 | Outpatient (CLI) | payer MEDICARE, SELFPAY ==
--- OUTSIDE RECORDS SUMMARY | 2024-05-26 11:28 | XMS_ITS | Clinical Summary ---
Author Organization [facility] Address [address] [place] [id number] Care Team Providers Care Welding Lead Burner Name Role Phone Luis Zaman MD Primary Care Provider [phone] Allergies Active Allergy Reactions Criticality Noted Date Comments Niacin Other (See comments) Reaction: Other, Simvastatin Other (See comments),Diarrhea,Vomit ing Reaction: Other, , Reaction: Diarrhea, Vomiting, , Medications losartan (COZAAR) 100 mg tablet take 1 tablet by oral route every day 0 0 7 Active lovastatin (MEVACOR) 10 mg tablet take 1 tablet by oral route every day with the evening meal 0 0 7 Active buPROPion SR (WELLBUTRIN SR) 150 mg 12 hr tablet take 1 tablet by oral route 2 times every day 0 0 7 Active amLODIPine (NORVASC) 5 mg tablet 7 Active hydroCHLOROthiazid e (MICROZIDE) 12.5 mg capsule 7 Active traMADoL (ULTRAM) 50 mg tablet 0 Active carvediloL (COREG) 3.125 mg tablet Take 1 tablet (3.125 mg total) by mouth 2 (two) times a day 3 Active diphenoxylate-atro pine (LOMOTIL) 2.5-0.025 mg per tabletIndications: diarrhea Take 1 tablet by mouth 4 (four) times a day as needed for diarrhea Active meclizine (ANTIVERT) 25 mg tablet Take 1 tablet (25 mg total) by mouth 3 (three) times a day as needed for dizziness Active meloxicam (MOBIC) 15 mg tablet Take 1 tablet (15 mg total) by mouth daily Active metaxalone (SKELAXIN) 800 mg tabletIndications: Muscle Spasm Take 1 tablet (800 mg total) by mouth 3 (three) times a day Active cholecalciferol 25 mcg (1,000 unit) tablet Take 1 tablet (1,000 Units total) by mouth daily Active polyethylene glycol (MIRALAX) 17 gram packetIndications: constipation Take 1 packet (17 g total) by mouth daily Active levothyroxine (SYNTHROID) 100 mcg tabletIndications: Postablative hypothyroidism Take 1 tablet (100 mcg total) by mouth daily 90 tablet 3 4 09/23/19 25 Active Active Problems Problem Noted Date Diagnosed Date VPC's (ventricular premature complexes) 05/08/19 24 Postablative hypothyroidism 04/17/2016 Overview (06/22/2016): Postablative hypothyroidism Assessment & Plan (09/23/2023 12:36 PM CDT): Chronic, unknown status Patient currently on levothyroxine 100 mcg oral daily Recheck thyroid function test today and further plans based on it Pre-diabetes 04/17/2016 Overview (06/22/2016): Type 2 diabetes mellitus without complication, without long-term current use of insulin Assessment & Plan (09/23/2023 12:36 PM CDT): Chronic, unknown status Recheck hemoglobin A1c Counseled on diet and exercise 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 Overview (06/22/2016): Nontoxic multinodular goiter Assessment & Plan (09/23/2023 12:36 PM CDT): Longstanding history of multinodular goiter since 2006 Last thyroid ultrasound in 2018 did not appreciate significant thyroid nodules No compressive symptoms Continue to clinically monitor for now 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 Diplopia 02/09/2015 Meningioma 09/01/2013 Edema of eyelid 07/09/2013 Contact dermatitis of eyelid 06/24/2013 Unspecified inflammation of eyelid 05/20/2013 Immunizations Immunization Administration Dates Next Due Influenza, Trivalent, Preservative Free, Intramu scular 12/08/2013 Surgical History Surgery Date Site/Laterality Comments REPLACEMENT TOTAL KNEE Right TOTAL HIP ARTHROPLASTY Bilateral EYE SURGERY due to graves disease Medical History Medical History Date Comments PVC's (premature ventricular contractions) Hypertension Thyroid disease Hyperlipidemia Graves disease Family History Medical History Relation Name Comments Heart disease Father Heart attack Mother Stroke Mother Relation Name Status Comments Father Mother Social History Tobacco Use Types Packs/Day Years Used Date Smoking Tobacco: Former Cigarettes Smokeless Tobacco: Never Tobacco Cessation:Counseling Given: Not Answered Personal Safety Answer Date Recorded Getting School Help Needed Not on file 03/01 Comments Unknown Sex and Gender Information Value Date Recorded Sex Assigned at Not on file Legal Sex Female 7:21 PM ORDER EXPEDITER Gender Identity Not on file Sexual Orientation Not on file Obstetrics History Last Filed Vital Signs Vital Sign Reading Time Taken Comments Blood Pressure 118/70 09/23/2023 11:24 AM CDT Pulse 61 09/23/2023 11:24 AM CDT Temperature - - Respiratory Rate 16 09/23/2023 11:24 AM CDT Oxygen Saturation 99% 05/08/2023 11:01 AM ORDER EXPEDITER Inhaled Oxygen Concentration - - Weight 62.1 kg (137 lb) 09/23/2023 11:24 AM CDT Height 165.1 cm (5' 5 ) 09/23/2023 11:24 AM CDT Body Mass Index 22.8 09/23/2023 11:24 AM CDT Plan of Treatment Health Maintenance Due Date Last Done Comments Osteoporosis Screening-Bone Density Scan 1940 Dilated Eye Exam 1940 Foot Exam 1940 DTaP/Tdap/Td Vaccine (1 - Tdap) 09/17/1950 Hepatitis B Screening 09/17/1957 Zoster Vaccine (1 of 2) 09/17/1989 Well Visit 65+ 09/17/2004 Lipid Panel 03/08/2015 03/08/2014 Pneumococcal vaccine 65+ (2 of 2 - PPSV23) 01/30/2017 12/05/2016 Depression Screening 10/15/2017 10/15/2016 eGFR 04/18/2019 04/18/2018 Influenza Vaccine (#1) 2023 1, 11/18/2019, 01/07/2015, Additional history exists Hemoglobin A1C 03/26/2024 09/24/2023, 07/0 09/2022, 09/21/2021, Additional history exists Fall Risk Assessment 09/22/2024 09/23/2023 Albumin Creatinine Ratio, Urine 09/23/2024 4 Procedures Procedure Name Priority Date/Time Associated Diagnosis Comments HM HEMOGLOBIN A1C Routine 09/24/2023 HM ALBUMIN CREATININE RATIO, URINE Routine 09/24/2023 EGFR Routine 04/18/2018 11:11 AM ORDER EXPEDITER LIPID PANEL Routine 03/08/2014 10:57 AM ORDER EXPEDITER from Last 3 Months or Most Recently Relevant to Health Maintenance Results * HM ALBUMIN CREATININE RATIO, URINE (09/24/2023) SCRIBED HM ALBUMIN CREATININE RATIO, URINE 0.24 EXTERNAL LAB 09/24/2023 Historical Provider HEALTH MAINTENANCE Edited Result - Final EXTERNAL LAB * HM HEMOGLOBIN A1C (09/24/2023) SCRIBED Hemoglobin A1c 6.1 % EXTERNAL LAB 09/24/2023 Historical Provider HEALTH MAINTENANCE Final Result EXTERNAL LAB * eGFR (04/18/2018 11:11 AM ORDER EXPEDITER) eGFR 50 mL/min/1.7 3 m2 JENNY BARONE (RADHA) Comment: Interpretive Data Reference Interval Normal >/= 90 mL/min/1.73m2 Mildly decreased* 60 - 89 mL/min/1.73m2 Mildly to moderately decreased 45 - 59 mL/min/1.73m2 Moderately to severely decreased 30 - 44 mL/min/1.73m2 Severely decreased 15 - 29 mL/min/1.73m2 Kidney Failure < 15 mL/min/1.73m2 *Relative to young adult level If -Peruvian multiply value by 1.16. Estimated glomerular filtration rate is determined by the CKD-EPI equation recommended by the National Kidney Foundation (KDIGO 2012 Clinical Practice Guideline for the Evaluation and Management of Chronic Kidney Disease. Kidney Intnl Suppl Mar 2012;3:1). The CKD-EPI equation should not be used for patients with unstable renal function and has not been validated in children and those over 70. Current interpretive data was last reviewed 2015. Blood specimen (specimen) 04/18/2018 11:11 AM ORDER EXPEDITER 04/18/2018 2:14 PM ORDER EXPEDITER Narrative JENNY BARONE (RADHA) - 04/18/2018 2:43 PM ORDER EXPEDITER Alban Sanchez MD LAB BLOOD ORDERABLES Final R esult JENNY LIZABETH ([place]) [address] [facility] [place] [address] * (ABNORMAL) Lipid panel (03/08/2014 10:57 AM ORDER EXPEDITER) Triglycerides 74 0 - 199 mg/dL 03/08/2014 11:53 AM [facility] [employer] HISTORICAL RESULTS Comment:12 hr pc highly wne mmended for Triglyceride Cholesterol 197 0 - 199 mg/dL 03/08/2014 11:53 AM [facility] [employer] HISTORICAL RESULTS Comment: Borderline: 200-239 High Risk: >239 HDL Cholesterol 70(H) 40 - 60 mg/dL 03/08/2014 11:53 AM [facility] [employer] HISTORICAL RESULTS Comment: Major Risk < 40 mg/dL Moderate Risk 40-60 mg/dL Negative Risk > 60 mg/dL LDL Cholesterol, Calc 112 0 - 130 mg/dL 03/08/2014 11:53 AM [facility] [employer] HISTORICAL RESULTS Comment:High Risk > 159 mg/d L Cholesterol/HDL Ratio 2.8 03/08/2014 11:53 AM [facility] [employer] HISTORICAL RESULTS Comment: Cholesterol / HDL Ratio 3.5:1 or less is desirable. Cholesterol / HDL Ratio greater than 5:1 is considered higher risk for developing heart disease. 03/08/2014 10:5 7 AM ORDER EXPEDITER 03/08/2014 11:22 AM ORDER EXPEDITER Narrative [facility] HISTORICAL RESULTS - 03/08/2014 11:53 AM ORDER EXPEDITER 12P Alban Sanchez MD LAB BLOOD ORDERABLES Final R esult [facility] HISTORICAL RESULTS from Last 3 Months or Most Recently Relevant to Health Maintenance Insurance MEDICARE [employer]ICARE [employer] Care Teams Welding Lead Burner Relationship Specialty Start Date End Date Luis Zaman MD [address] [place] [address] [facility] [place] [address] [facility] - General 04/17/16
--- OUTSIDE RECORDS SUMMARY | 2024-05-26 11:28 | XMS_ITS | Clinical Summary ---
Author Organization [facility] Address [address] [place] [id number] Phone Care Team Providers Care Waiver Analyst Name Role Phone Luis Zaman MD Primary Care Provider [phone] Allergies Active Allergy Reactions Criticality Noted Date Comments Niacin Hives,Itching,Other (see comments) 09/24/2018 Reaction: Other, Nsaids Other (see comments) 09/24/2018 Stage 3 kidney disease won't permit Simvastatin Diarrhea,Nausea And Vomiting 09/24/2018 Other reaction(s): Other (See comments), Vomiting Reaction: Other, , Reaction: Diarrhea, Vomiting, , Medications Medication Sig Dispensed Refills Start Date End Date Status levothyroxine (SYNTHROID, LEVOTHROID) 88 MCG tablet 1 daily 0 08/04/2014 Active polyethylene glycol (MIRALAX) powder 17g daily 0 05/22/2017 Active aspirin 81 MG chewable tablet 1qd 0 05/22/2017 Active amLODIPine (NORVASC) 5 MG tablet 1 tablet (5 mg) orally daily 0 05/23/2016 Active Multiple Vitamin (MULTIVITAMIN) capsule 11/09/2011 Active buPROPion SR (WELLBUTRIN SR) 150 MG 12 hr tablet 2 dialy 0 05/23/2016 Active losartan (COZAAR) 100 MG tablet losartan 100 mg tablet 04/17/2016 Active traMADol (ULTRAM) 50 MG tablet Take 50 mg by mouth every 6 (six) hours 12/02/2019 Active lovastatin (MEVACOR) 10 MG tablet TAKE 1 TABLET EVERY NIGHT 90 tablet 3 08/15/2021 Active Active Problems Problem Noted Date Diagnosed Date Graves' disease 12/10/2018 Hyperlipidemia 05/21/2018 Hypertensive disorder 10/17/2015 Chronic kidney disease stage 3A 09/27/2011 Disorder of thyroid 09/27/2011 Resolved Problems Problem Noted Date Diagnosed Date Resolved Date Hypertensive chronic kidney disease with stage 1 through stage 4 chronic kidney disease, or unspecified chronic kidney disease 09/27/2011 10/04/2021 Immunizations Name Administration Dates Next Due Fluzone High-Dose 11/18/2019 Influenza (IM) Preservative Free 12/08/2013 Influenza Split High Dose Preservative Free IM 0 11/16/2020,12/13/2013 Influenza TIV (IM) 11/18/2019,01/07/2015 Pneumococcal Conjugate 13-Valent 12/05/2016 Family History Medical History Relation Comments Kidney disease Neg Hx Social History Tobacco Use Types Packs/Day Years Used Date Smoking Tobacco: Former Smokeless Tobacco: Never Alcohol Use Standard Drinks/Week Comments Not Currently 0 (1 standard drink = 0.6 oz pur e alcohol) Sex and Gender Information Value Date Recorded Sex Assigned at Not on file Gender Identity Not on file Sexual Orientation Not on file Last Filed Vital Signs Vital Sign Reading Time Taken Comments Blood Pressure 128/60 10/04/2021 10:11 AM CDT Pulse 72 10/04/2021 10:11 AM CDT Temperature 36.6 C (97.8 F) 10/04/2021 10:11 AM CDT Respiratory Rate 20 05/23/2016 12:01 AM HEATING ELEMENT REPAIRER Oxygen Saturation - - Inhaled Oxygen Concentration - - Weight 60.8 kg (134 lb) 10/04/2021 10:11 AM CDT Height 165.1 cm (5' 5 ) 10/04/2021 10:11 AM CDT Body Mass Index 22.3 10/04/2021 10:11 AM CDT Plan of Treatment Health Maintenance Due Date Last Done Comments Pneumococcal PPSV23/PCV13 65 + Years / Low and Medium Risk (2 of 3 - PPSV23 or PCV20) 12/05/2017 12/05/2016 Influenza Vaccine (#1) 2023 0, 01/07/2015, 12/08/2013 Care Teams Waiver Analyst Relationship Specialty Start Date End Date Luis Zaman MD [address] [place] [id number] PCP - General 05/21/18
--- OUTSIDE RECORDS SUMMARY | 2024-05-26 11:28 | XMS_ITS | Clinical Summary ---
Author Organization [facility] [id number] [facility] Address [address] [place] [address] Care Team Providers Care Hedis Coordinator Name Role Phone Luis Zaman MD Primary Care Provider [phone] Allergies Active Allergy Reactions Criticality Noted Date Comments Niacin Hives,Itching High 09/24/2018 Nsaids (Non-Steroidal Anti-Inflammatory Drug) Other (See Comments) 09/24/2018 Stage 3 kidney disease won't permit Simvastatin Diarrhea,Nausea and Vomiting Low 09/24/2018 Medications amLODIPine (NORVASC) 5 mg tablet amlodipine 5 mg tablet 05/23 17 Active levothyroxine 88 mcg tablet levothyroxine 88 mcg tablet 08/05/19 15 Active losartan (COZAAR) 100 mg tablet losartan 100 mg tablet 04/17 17 Active buPROPion HCl (WELLBUTRIN SR) 150 mg Sustained Release 12 hour tablet bupropion HCl SR 150 mg tablet,12 hr sustained-release 04/17/19 17 Active hydroCHLOROth iazide (MICROZIDE) 12.5 mg capsule hydrochlorothiazide 12.5 mg capsule 02/26/20 17 Active lovastatin (MEVACOR) 10 mg tablet lovastatin 10 mg tablet 04/17/19 17 Active traMADol (ULTRAM) 50 mg tablet tramadol 50 mg tablet Active polyethylene glycol 3350 (MIRALAX ORAL) Miralax Active Active Problems Problem Noted Date Diagnosed Date 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 Family History Medical History Relation Name Comments No Known Problems Brother Heart Attack Father Heart Attack Mother Stroke Mother Schizophrenia Sister Relation Name Status Comments Brother Alive Father Mother Sister Social History Tobacco Use Types Packs/Day Years Used Date Smoking Tobacco: Former Cigarettes Q uit: 1975 Alcohol Use Standard Drinks/Week Comments Yes 0 (1 standard drink = 0.6 oz pur e alcohol) Comments Unknown Sex and Gender Information Value Date Recorded Sex Assigned at Not on file Legal Sex Female 10:44 AM CDT Gender Identity Not on file Sexual Orientation Not on file Occupation Industry Job Start Date Job End Date Not on file Not on file Not on file Not on file Last Filed Vital Signs Vital Sign Reading Time Taken Comments Blood Pressure 168/80 09/24/2018 1:26 PM CDT Pulse - - Temperature - - Respiratory Rate - - Oxygen Saturation - - Inhaled Oxygen Concentration - - Weight 64.9 kg (143 lb) 09/24/2018 1:26 PM CDT Height 165.1 cm (5' 5 ) 09/24/2018 1:26 PM CDT Body Mass Index 23.8 09/24/2018 1:26 PM CDT Plan of Treatment Health Maintenance Due Date Last Done Comments DIABETES ANNUAL FOOT EXAM 09/17/1957 DIABETES ANNUAL RETINAL EXAM 09/17/1957 DIABETES MICROALBUMIN ANNUAL SCREEN 09/17/1957 LDL CHOLESTEROL ANNUAL 09/17/1957 DTAP/TDAP/TD VACCINES (1 - Tdap) 09/17/1958 ZOSTER VACCINE (1 of 2) 09/17/1989 OSTEOPOROSIS SCREENING 09/17/2004 RSV VACCINE (60+ or ) (1 - 1-dose 75+ series) 09/17/2014 PNEUMOCOCCAL VACCINE 50+ YEA RS (2 of 2 - PPSV23) 01/30/2017 12/05/2016 DIABETES HBA1C Q 6 MONTHS 10/16/2018 04/18/2018 INFLUENZA VACCINE (#1) 2023 5, 12/13/2013, 12/08/2013 Insurance MEDICARE PART A AND B [facility] SUPP Care Teams Hedis Coordinator Relationship Specialty Start Date End Date Luis Zaman MD PCP - General Family Practice 09/22/18
--- OUTSIDE RECORDS SUMMARY | 2024-05-26 11:28 | XMS_ITS | Continuity of Care Document ---
Author Organization [facility] Address [address] [facility] [address] [place] [address] Phone Care Team Providers Care Technician Preventative Medicine Name Role Phone Gorge Gunderson Unavailable Unavailable Procedures Procedure Date Eye Exam, New Patient Refraction Advance Directives Directive Yes / No Effective Date File Name No Information Encounters Encounter Description Practice Location Reason(s) For Visit Diagnoses Date Provider Providers Copied on Encounter [facility], [address], [place], [place], [id number], [place] tel:[phone] [facility] No Information [address]. [address] [facility] [address], [address], [place]. tel:[phone] Family History Family Member Type Diagnosis Age At Onset No Information Payers Payer name Insurance type Covered green party ID Authoriza tion(s) Medicare [facility] [id number] [place] [id number] Social History Type Description Quantity Date Captured [...]
--- OUTSIDE RECORDS SUMMARY | 2024-05-26 11:28 | XMS_ITS | Data Portability ---
Author Organization [facility], Main Office Address [address] [place] [address] Assessment No assessment recorded. Plan of Treatment Reminders Order Date Submit Date Provider Last Modified By Organization Details Last Modified Time Details Appointments None recorded. Lab None recorded. Referral cardiologis t referral 2022 023 [email or web address] [facility], [address], [address], [place], [address], 4 08:45:01 physical therapist referral - *Please call patient to schedule* 2022 023 [email or web address] [facility], [address] [place], [address], 3 09:04:15 physical therapist referral - *Please call patient to schedule* 2022 023 TAMMIE [facility], [address] [place], [address], 3 14:26:34 Procedures None recorded. Surgeries None recorded. Imaging None recorded. Medication Orders carvedilol 3.125 mg tablet 2022 023 TAMMIE [facility] In [facility], [address] [place], [address], 3 10:10:06 Lomotil 2.5 mg-0.025 mg tablet 2022 023 [email or web address] 3 [facility] 24565 In [facility], [address] [place], [address], 3 18:59:10 meclizine 25 mg tablet 2022 023 [email or web address] 3 [facility] [address]30 In [facility], [address], [place], [address], 3 16:38:19 triamcinolo ne acetonide 0.1 % topical cream 2022 023 TAMMIE [facility] 39138 In [facility], [address], [place], [address], 3 16:36:50 Medrol (Juan) 4 mg tablets in a dose pack 2022 023 TAMMIE [facility] [address]10 In [facility], [address], [place], [address], 3 16:36:49 tramadol 50 mg tablet 2022 023 TAMMIE [facility] 805[address] In [facility], [address], [place], [address], 3 12:40:49 metaxalone 800 mg tablet 2022 023 [email or web address] 3 [facility] [address]114 In [facility], [address], [place], [address], 3 13:09:32 Patient TargetsNo targets recorded. Patient InstructionsNo instructions recorded. Reason for Referral Physical Therapist Referral for Pain of left hip joint *Please call patient to schedule* Referring Physician: [facility], Encounter Date: 08/15/2022 Physical Therapist Referral for Low back pain *Please call patient to schedule* Referring Physician: [facility], Encounter Date: 08/15/2022 Hospitality Associate Referral for Mu ltiple premature ventricular complexes Referring Physician: J[facility], Encounter Date: 02/27/2023 Results Created Date Observation Date Name Description Value Unit Range Abnormal Flag Note LastModifiedBy Organization Detail LastModifiedTime 06/28/19 21 06/27/2020 urina lysis , dipst ick Leukocytes (reference range: negative hollis/ l) Small Not Available [address], [place], [address], 06/27/2020 11:24:49 06/28/19 21 06/27/2020 urina lysis , dipst ick Nitrite (reference rage: negative mg/dl) negati ve Not Available [address], [place], [address], 06/27/2020 11:24:49 06/28/19 21 06/27/2020 urina lysis , dipst ick Urobilinogen (reference range: 0.2-1 mg/dl) 1 Not Available [address] , [address], [place], [address], 06/27/2020 11:24:49 06/28/19 21 06/27/2020 urina lysis , dipst ick Protein (reference range: negative mg/dl) Negati ve Not Available [address], [place], [address], 06/27/2020 11:24:49 06/28/19 21 06/27/2020 urina lysis , dipst ick pH (reference range: 5-7) 6.0 Not Available [address], [place], [address], 06/27/2020 11:24:49 06/28/19 21 06/27/2020 urina lysis , dipst ick Blood (reference range: negative Drew/ l) Negati ve Not Available [address] , [address], [place], [address], 06/27/2020 11:24:49 06/28/19 21 06/27/2020 urina lysis , dipst ick Specific [place] (reference range: 1.005-1.030) 1.015 Not Available [address] , [address], [place], [address], 06/27/2020 11:24:49 06/28/19 21 06/27/2020 urina lysis , dipst ick Ketone (reference range: negative mg/dl) Negati ve Not Available [address] , [address], [place], [address], 06/27/2020 11:24:49 06/28/19 21 06/27/2020 urina lysis , dipst ick Bilirubin (reference range: negative mg/dl) Negati ve Not Available [address] , [address], [place], [address], 06/27/2020 11:24:49 06/28/19 21 06/27/2020 urina lysis , dipst ick Glucose (reference range: negative mg/dl) Negati ve Not Available [address] , [address], [place], [address], 06/27/2020 11:24:49 06/28/1906/27/2020 urina lysis , dipst ick Appearance Clear Not Available [address] , [address], [place], [address], 06/27/2020 11:24:49 06/28/19 21 06/27/2020 urina lysis , dipst ick Color Yellow Not Available [facility] [address] , [address], [place], [address], 06/27/2020 11:24:49 06/28/19 22 06/27/2021 XR, abdom en No observ ation record ed. [id number] [address], [place], [address], 05/16/2022 08:26:48 08/15/19 23 08/14/2022 XR, knee, 3 view No observ ation record ed. [address], [address], 08/15/2022 08:30:59 08/15/19 23 08/14/2022 XR, hip + pelvi s, bilat eral, 2 view No observ ation record ed. [address] [address], [place], [address], 08/15/2022 08:31:43 12/12/19 23 12/07/2022 markel r monit or No observ ation record ed. [address] [address], [place], [address], 12/13/2022 08:31:16 12/14/19 23 12/07/2022 markel r monit or No observ ation record ed. [address] (Medical Records) [address] [place] [address], [address], 12/13/2022 14:15:22 06/09/19 24 06/09/2023 CT, abdom en + pelvi s, w/o contr ast No observ ation record ed. [address], [address], 06/10/2023 11:00:42 Result Notes None recorded. Problems Name Problem SNOMED Code Status Onset Date Resolution Date Notes Provider Name and Address Organization Details Recorded Time History of meningioma 6826871296673 01 Active Not Available [facility] 3 12:47:58 Focal asymmetric breast tissue 008645581 Active Not Available [facility] 3 12:47:58 Abdominal pain 54249410 Active Not Available [facility] 3 12:47:58 Cystocele 880888849 Active Not Available [facility] 3 12:47:58 Disorder of vagina 15678657 Active Not Available [facility] 3 12:47:58 Graves' disease 330750859 Active Not Available [facility] 3 12:47:58 Depressive disorder 59812269 Active Not Available [facility] 3 12:47:58 Hypertensi ve disorder 98882661 Active Not Available [facility] 3 12:47:58 Hypothyroi dism 81797673 Active Not Available [facility] 3 12:47:58 Unexplaine d weight loss 665223073 Active Not Available [facility] 3 12:47:58 Anxiety 22018472 Active Not Available [facility] 3 12:47:58 Dysuria 60566058 Active Not Available [facility] 3 12:47:58 Hyperlipid emia 73698711 Active Not Available [facility] 3 12:47:58 Essential hypertensi on 67734240 Active Not Available [facility] 3 12:47:58 Diarrhea 44944603 Active Not Available [facility] 3 12:47:58 Osteoporos is 25945081 Active Not Available [facility] 3 12:47:58 Urinary tract infectious disease 41362236 Active Not Available [facility] 3 12:47:58 Palpitatio ns 91269567 Active Not Available [facility] 3 12:47:58 Pain of left hip joint 4500774337993 00 Active 2022 Not Available [facility] 3 12:47:58 Low back pain 372084136 Active 2022 Not Available [facility] 3 12:47:58 Arthritis of left knee 5986795143133 104 Active 2022 Not Available [facility] 3 12:47:58 Spasm of back muscles 026864804 Active 2022 Not Available [facility] 3 12:47:58 Contact dermatitis 91287782 Active 2022 Not Available [facility] 3 12:47:58 Dizziness 430299836 Active 2022 Not Available [facility] 3 12:47:58 Multiple premature ventricula r complexes 395659437 Active 2022 BRIE cOhoa [address], [address], [place], [address] , [facility] 10:08:57 Problem Notes None recorded. Procedures Surgical History Date Name Laterality Status Provider Name and Address Organization Details Recorded Time Cortisone Injection (Dequervains/ Greater Trochantric/ Lateral Epicondylitis/ Shoulder/ Subacromial Space/ Knee or Trigger Finger) completed Luis Zaman MD [address], [address], [place], [address], [facility] 08/15/2022 13:01:33 Imaging Results Imaging Date Name Status LastModified by Organiz ation Details LastModified Time 06/27/2021 XR, abdomen completed [id number] [place] [address] [place] [address], [address], 05/16/2022 08:26:48 08/14/2022 XR, knee, 3 view completed [address] [place] [address], [address], 08/15/2022 08:30:59 08/14/2022 XR, hip + pelvis, bilateral, 2 view completed [address], [address], 08/15/2022 08:31:43 12/07/2022 holter monitor completed [address], [address], 12/13/2022 08:31:16 12/07/2022 holter monitor completed [address] (Medical Records) [address], [place], [address], 12/13/2022 14:15:22 06/09/2023 CT, abdomen + pelvis, w/o contrast completed [address] [facility] [address], [place], [address], 06/10/2023 11:00:42 Procedure Notes None recorded. Medical Equipment None Reported. Allergies Allergen ID Allergen Name Allergen Category Reaction Reaction Severity Criticality Documentation Date Start Date Code Code System Note Provider Name and Address Organization Details Recorded Time simvastat in medicatio n vomiting Not available Not available 05/16/2022 78964 RxNorm Not Available [facility] 3 08:26:41 57759 Niaspan medicatio n hives Not available Not available 05/16/2022 94339 6 RxNorm Not Available [facility] 3 08:26:42 Medications Name Sig Start Date Stop Date Status Note LastModified by Organization Details LastModified Time losartan 50 mg tablet active Not Available Not Available Not Available amoxicill in 500 mg capsule TAKE 4 CAPSULES BY MOUTH 1 HOUR PRIOR TO DENTAL APPOINTM ENT 12/04 completed Not Available Not Available Not Available bupropion HCl SR 150 mg tablet,12 hr sustained -release TAKE 1 TABLET BY MOUTH TWICE A DAY active Not Available Not Available No t Available prednison e 10 mg tablet active Not Available Not Available Not Available oxybutyni n chloride ER 10 mg tablet,ex tended release 24 hr 03/31 completed Not Available Not Available Not Available ofloxacin 0.3 % eye drops 03/31 completed Not Available Not Available Not Available clorazepa te dipotassi um 3.75 mg tablet Take 1 tablet twice a day by oral route as needed. active Not Available Not Available No t Available tizanidin e 4 mg tablet TAKE 1 TABLET BY MOUTH EVERY 6 HOURS NEEDED FOR 30 DAYS active Not Available Not Available No t Available hydrocodo ne 5 mg-acetam inophen 325 mg tablet 09/06 completed Not Available Not Available Not Available meloxicam 15 mg tablet Take 1 tablet every day by oral route. active Not Available Not Available No t Available prednison e 20 mg tablet Take 3 tablets every day by oral route. active Not Available Not Available No t Available prednison e 5 mg tablet 03/23 completed Not Available Not Available Not Available Pyridium 100 mg tablet Take 1 tablet 3 times a day by oral route for 3 days. active Not Available Not Available No t Available diphenoxy late-atro pine 2.5 mg-0.025 mg tablet TAKE 1 TABLET BY MOUTH FOUR TIMES A DAY NEEDED active Not Available Not Available No t Available amlodipin e 2.5 mg tablet TAKE 1 TABLET DAILY 02/05 completed Not Available Not Available Not Available metronida zole 500 mg tablet Take 1 tablet twice a day by oral route for 7 days. 03/31 completed Not Available Not Available Not Available amlodipin e 5 mg tablet 1 po qday active Not Available Not Available No t Available ciproflox acin 500 mg tablet TAKE 1 TABLET BY MOUTH EVERY 12 HOURS FOR 5 DAYS active Not Available Not Available No t Available sulfameth oxazole 800 mg-trimet hoprim 160 mg tablet Take 1 tablet every 12 hours by oral route for 5 days. active Not Available Not Available No t Available lovastati n 10 mg tablet TAKE 1 TABLET BY MOUTH EVERY DAY active Not Available Not Available No t Available tramadol 50 mg tablet TAKE 1 TO 2 TABLETS BY MOUTH EVERY 6 HOURS NEEDED active Not Available Not Available No t Available triamcino lone acetonide 0.1 % topical cream APPLY TOPICALL Y A THIN LAYER TO AFFECTED AREA(S) TWICE A DAY active Not Available Not Available No t Available amoxicill in 500 mg tablet TAKE 4 TABS BY MOUTH 1 HOUR PRIOR TO APPOINTM ENT 12/04 completed Not Available Not Available Not Available carvedilo l 3.125 mg tablet TAKE 1 TABLET BY MOUTH TWICE A DAY active Not Available Not Available No t Available ketorolac 0.5 % eye drops 03/31 completed Not Available Not Available Not Available levothyro xine 100 mcg tablet TAKE 1 TABLET EVERY DAY BY ORAL ROUTE IN THE MORNING FOR 180 DAYS. 2023 active Not Available Not Available Not Avai lable oxycodone -acetamin ophen 5 mg-325 mg tablet 06/27 completed Not Available Not Available Not Available levothyro xine 88 mcg tablet Take 1 tablet every day by oral route for 90 days. 12/04 completed Not Available Not Available Not Available prednisol one acetate 1 % eye drops,ave pension 03/31 completed Not Available Not Available Not Available lorazepam 0.5 mg tablet take one tablet one half hour prior to procedur e can repeat dose one time if needed active Not Available Not Available No t Available meclizine 25 mg tablet Take by oral route for 10 days. 2022 active Not Available Not Available Not Avai lable cephalexi n 500 mg capsule 01/20 completed Not Available Not Available Not Available erythromy buck 5 mg/gram (0.5 %) eye ointment active Not Available Not Available Not Available nitrofura ntoin macrocrys sudeep 100 mg capsule Take 1 capsule every 6 hours by oral route with meals for 7 days. 09/24 completed Not Available Not Available Not Available hydrochlo rothiazid e 12.5 mg capsule TAKE 1 CAPSULE DAILY 03/23 completed Not Available Not Available Not Available omeprazol e 20 mg capsule,d elayed release Take 1 capsule every day by oral route. 2014 active PRN Not Available Not Available Not Avai lable amoxicill in 250 mg capsule 09/06 completed Not Available Not Available Not Available methylpre dnisolone 4 mg tablets in a dose pack TAKE 6 TABLETS ON DAY 1 DIRECTED ON PACKAGE AND DECREASE BY 1 TAB EACH DAY FOR A TOTAL OF 6 DAYS active Not Available Not Available No t Available fluocinon shamika 0.05 % topical cream active Not Available Not Available Not Available ondansetr on 4 mg disintegr ating tablet 01/20 completed Not Available Not Available Not Available losartan 100 mg tablet 1 po qday active Not Available Not Available No t Available Blephamid e 10 %-0.2 % eye drops,ave pension active Not Available Not Available Not Available diazepam 5 mg tablet 06/27 completed Not Available Not Available Not Available levothyro xine 112 mcg tablet active Not Available Not Available Not Available Tylenol Extra Strength 500 mg tablet Take 2 tablets every 4 hours by oral route. 09/30 completed Not Available Not Available Not Available metaxalon e 800 mg tablet Take 1 tablet 3 times a day by oral route as needed. 2022 active Not Available Not Available Not Avai lable cyclobenz aprine 5 mg tablet Take 1 tablet 3 times a day by oral route as needed. active Not Available Not Available No t Available nitrofura ntoin monohydra te/macroc rystals 100 mg capsule TAKE 1 CAPSULE BY MOUTH EVERY 12 HOURS FOR 7 DAYS active Not Available Not Available No t Available pregabali n 50 mg capsule 06/27 completed Not Available Not Available Not Available Dulcolax (bisacody l) 01/08 completed Not Available Not Available Not Available Preparati on H 09/15 completed Not Available Not Available Not Available amlodipin e 5 mg 03/31 completed Not Available Not Available Not Available Centrum Silver takes 1 every other day 2014 active Not Available Not Available Not Avai lable Miralax 2016 active Not Available Not Available Not Avai lable levothyro xine 112 mcg capsule Take 1 capsule every day by oral route. [address] Jameel ornelas Not Available Not Available Not Available Atelvia 35 mg tablet,de layed release Take 1 tablet every week by oral route for 90 days. 04/01 completed NOT SURE OF DATE STOPPED SENT A LETTER STATING THAT SINCE LAST VISIT IT HAD BEEN STOPPED. Not Available Not Available Not Available Xarelto 10 mg tablet 09/24 completed Not Available Not Available Not Available Linzess 01/08 completed Not Available Not Available Not Available Fluzone High-Dose 3915-0969 (PF) 180 mcg/0.5 mL intramusc ular syringe TO BE ADMINIST ERED BY [employer] FOR IMMUNIZA TION 12/17 completed Not Available Not Available Not Available Caltrate takes 1 every other day 2014 active Not Available Not Available Not Avai lable Fluzone High-Dose 2013- (PF) 180 mcg/0.5 mL intramusc ular syringe 01/20 completed Not Available Not Available Not Available Fluzone High-Dose Quad (PF) 240 mcg/0.7 mL IM syringe TO BE ADMINIST ERED BY [employer] FOR IMMUNIZA TION 06/27 completed Not Available Not Available Not Available Vitals Date Recorded Body mass index (BMI) Body height Oxygen saturation Oxygen saturation in Arterial blood by Pulse oximetry Heart rate Body temperature Body weight Systolic blood pressure Diastolic blood pressure Provider Name and Address Organization Details Last Updated DateTime 1 23.5 kg/m2 165.1 cm 97 % 97 % 77 /min 97.2 [degF] 58773.5 2 g 154 mm[Hg] 80 mm[Hg] Not Available [facility] 3 08:21:12 Date Recorded Body weight Body mass index (BMI) Body height Body temperature Heart rate Oxygen saturation Oxygen saturation in Arterial blood by Pulse oximetry Systolic blood pressure Diastolic blood pressure Provider Name and Address Organization Details Last Updated DateTime 3 86105.9 3 g 23.3 kg/m2 165.1 cm 97 [degF] 62 /min 98 % 98 % 144 mm[Hg] 70 mm[Hg] WILFRIDO Reddy [facility] 3 12:23:52 Date Recorded Body height Body mass index (BMI) Body weight Body temperature Heart rate Oxygen saturation Oxygen saturation in Arterial blood by Pulse oximetry Systolic blood pressure Diastolic blood pressure Provider Name and Address Organization Details Last Updated DateTime 3 165.1 cm 23.1 kg/m2 98984.3 4 g 96.8 [degF] 69 /min 98 % 98 % 138 mm[Hg] 72 mm[Hg] Anika hampton CMA [facility] 3 16:19:53 Date Recorded Body height Body mass index (BMI) Body weight Body temperature Heart rate Oxygen saturation Oxygen saturation in Arterial blood by Pulse oximetry Systolic blood pressure Diastolic blood pressure Provider Name and Address Organization Details Last Updated DateTime 3 165.1 cm 22.6 kg/m2 47660.5 6 g 97.6 [degF] 70 /min 98 % 98 % 144 mm[Hg] 80 mm[Hg] Danisha Chang MA [place] [employer] [facility] 3 09:55:00 Social History Question Answer Notes LastModified by Organizat ion Details LastModified Time Tobacco Smoking Status Former Smoker Not Available [facility] 05/16/2022 08:18:11 In The 14 Days Before Symptom Onset, Have You Had Close Contact With A Laboratory-confirm ed COVID-19 While That Case Was Ill? No [id number] Information not available 05/16/2022 In The 14 Days Before Symptom Onset, Have You Had Close Contact With A Person Who Is Under Investigation For COVID-19 While That Person Was Ill? No [id number] Information not available 05/16/2022 At What Age Did You Start Smoking Tobacco? 17 [id number] Information not available 05/16/2022 How Much Tobacco Do You Smoke? 0.5 PPD [id number] Information not available 05/16/2022 How Many Years Have You Smoked Tobacco? 18 [id number] Information not available 05/16/2022 Sex: Unknown Functional Status None recorded. Mental Status None recorded. Family History Relationship Description Onset Age of this Age Resolved Age Notes LastModified by Organization Details LastModified Time Father Myocardial infarction [id number] Not available 05/16/2022 08:18:21 Mother Family history of stroke [id number] Not available 05/16/2022 08:18:21 Medical History No medical history recorded. Gynecological HistoryNo gynecological history recorded. Obstetrics History GPAL:G 0 P 0 0 0 0 Immunizations Vaccine Type Date Status Note Provider Nam e and Address Organization Details Recorded Time COVID-19, mRNA, LNP-S, PF, kaylie-sucrose, 30 mcg/0.3 mL 3 completed Kirk Hummel RN null, [facility] 12/13/2022 15:22:15 COVID-19, mRNA, LNP-S, PF, kaylie-sucrose, 30 mcg/0.3 mL 3 completed Kirk Hummel RN null, [facility] 12/13/2022 15:23:03 Influenza, high-dose, quadrivalent, PF 3 completed Kirk Hummel RN null, [facility] 12/13/2022 15:24:05 Influenza, split virus, trivalent, preservative 5 completed Not Available [facility] 05/16/2022 08:26:36 Influenza, high-dose, quadrivalent, PF 1 completed Not Available [facility] 05/16/2022 08:26:36 Pneumococcal conjugate PCV 13 7 completed Not Available [facility] 05/16/2022 08:26:36 Influenza, high-dose, trivalent, PF 4 completed Not Available [facility] 05/16/2022 08:26:37 Past Encounters Encounter ID Performer Location Encounter Start Date Encounter Closed Date Diagnosis/Indication Diagnosis SNOMED-CT Code Diagnosis ICD10 Code Diagnosis Note [id number] [facility] [place] [address] [place] [address] 06/27/2020 00:00:00 06/27/2020 21:06:44 [id number] Luis Zaman MD [facility] [address] [address] [facility] [place] [address] 08/15/2022 12:10:35 08/15/2022 13:55:16 Pain of left hip joint 7588669544 72027 M25.552 Low back pain 228958542 M54.50 Arthritis of left knee 7735716532 114183 M13.862 Injected left knee [id number] Luis Zaman MD [facility] [address] [address] [place] [address] 12/04/2022 16:13:04 12/04/2022 16:43:12 Contact dermatitis 86208215 L25.9 Dizziness 375792896 R42 Diarrhea 29302687 R19.7 May need viberzii [id number] BRIE Ochoa [facility] [place] [address] [address] [place] [address] 02/27/2023 09:42:09 02/27/2023 10:26:16 Multiple premature ventricular complexes 691304877 I49.3 Health Concerns Section Related Observation LastModified by Organization Detai ls LastModified Time None Recorded Concern Status LastModified by Organization Details LastModified Time None Recorded Advance Directives Directive None Recorded Payers Encounter Date Sequence Insurance Name Policy Number Policy Fletcher Covered Member ID Fletcher Member ID Guarantor Name 08/15/2022 1 [place] Mylene A Antonio [id number] Mylene A Antonio 08/15/2022 2 [place] [id number] Mylene A Antonio [id number] Mylene A Antonio 12/04/2022 1 [place] Mylene A Antoino [id number] Mylene A Antonio 12/04/2022 2 [place] [id number] Mylene A Antonio [id number] Mylene A Antonio 02/27/2023 1 [place] Mylene A Antonio [id number] Mylene A Antonio 02/27/2023 2 [place] [id number] Mylene A Antonio [id number] Mylene A Antonio Notes Date Note Type Note Provider Name and Address Organization Details Recorded Time 08/15/2022 text/html Here today c/o left knee. pain Has significant arthritis of left knee and has compensated for this with the walking and has developed left hip pain and back pain. She ran out of tramadol. Taking 2 tramadol did help. Has muscle spasm in left back. Pt is interested in left knee injection for arthritis of knee. Pt also reports numbness above left knee. Luis Zaman MD [address] [place] [address], [facility] [address], [place], [address], [facility] [facility] 08/15/2022 20:53:49 12/04/2022 text/html Here today c/o facial swelling and itching and is c/o dizziness. Has balance issues. She has not changed anything as far as products. Did start using something she got on line for age spots. Also got silk pillow cases and her and both have a rash.Pt reports dizziness to a point of almost losing balance. Pt still has diarrhea and lomotil does help needs a refill on this. Has seen GI and has not gotten anywhere with this. Luis Zaman MD [address] [facility], [facility] [address], [place], [address], [place] 12/04/2022 19:05:57 02/27/2023 text/html ECG abnormal , holter many pvcs BRIE Ochoa [facility] [facility], [facility] [address], [place], [address], [place] 03/11/2023 15:40:51 OBGyn Episode No OBEpisode recorded.
--- OUTSIDE RECORDS SUMMARY | 2024-05-26 11:28 | XMS_ITS | Referral Summary ---
Author Organization [facility] Address [address] [place] [address] Care Team Providers Care Door Installer Name Role Phone Luis Zaman MD Primary Care Provider [phone]- [phone] Allergies Active Allergy Reactions Criticality Noted Date [...] Influenza, Trivalent, Preservative Free, Intramu scular 12/08/2013 Social History Tobacco Use Types Packs/Day Years Used Date Smoking Tobacco: Former Cigarettes Smokeless Tobacco: Never Tobacco Cessation:Counseling Given: Not Answered Personal Safety Answer Date Recorded Getting School Help Needed Not on file 03/01 Comments Unknown Sex and Gender Information Value Date Recorded Sex Assigned at Not on file Legal Sex Female 7:21 PM OCULAR CARE AIDE Gender Identity Not on file Sexual Orientation Not on file Last Filed Vital Signs Vital Sign Reading Time Taken Comments Blood Pressure 118/70 09/23/2023 11:24 AM CDT Pulse 61 09/23/2023 11:24 AM CDT Temperature - - Respiratory Rate 16 09/23/2023 11:24 AM CDT Oxygen Saturation 99% 05/08/2023 11:01 AM OCULAR CARE AIDE Inhaled Oxygen Concentration - - Weight 62.1 kg (137 lb) 09/23/2023 11:24 AM CDT Height 165.1 cm (5' 5 ) 09/23/2023 11:24 AM CDT Body Mass Index 22.8 09/23/2023 11:24 AM CDT Plan of Treatment Not on file Procedures Procedure Name Priority Date/Time Associated Diagnosis Comments HM HEMOGLOBIN A1C Routine 09/24/2023 HM ALBUMIN CREATININE RATIO, URINE Routine 09/24/2023 EGFR Routine 04/18/2018 11:11 AM OCULAR CARE AIDE LIPID PANEL Routine 03/08/2014 10:57 AM OCULAR CARE AIDE from Last 3 Months or Most Recently Relevant to Health Maintenance Results * HM ALBUMIN CREATININE RATIO, URINE (09/24/2023) SCRIBED HM ALBUMIN CREATININE RATIO, URINE 0.24 EXTERNAL LAB 09/24/2023 us Historical Provider HEALTH MAINTENANCE Edited Result - Final EXTERNAL LAB * HM HEMOGLOBIN A1C (09/24/2023) SCRIBED Hemoglobin A1c 6.1 % EXTERNAL LAB 09/24/2023 Karolyn Provider HEALTH MAINTENANCE Final Result Performing Organization Address [facility] Co de Phone Number EXTERNAL LAB * eGFR (04/18/2018 11:11 AM OCULAR CARE AIDE) eGFR 50 mL/min/1.7 3 m2 JENNY BARONE ([place]AV[place]) Comment: Interpretive Data Reference Interval Normal >/= 90 mL/min/1.73m2 Mildly decreased* 60 - 89 mL/min/1.73m2 Mildly to moderately decreased 45 - 59 mL/min/1.73m2 Moderately to severely decreased 30 - 44 mL/min/1.73m2 Severely decreased 15 - 29 mL/min/1.73m2 Kidney Failure < 15 mL/min/1.73m2 *Relative to young adult level If -Macedonian multiply value by 1.16. Estimated glomerular filtration [...] 2015. Blood specimen (specimen) 04/18/2018 11:11 AM OCULAR CARE AIDE 04/18/2018 2:14 PM OCULAR CARE AIDE Narrative JENNY BARONE (NEAVITT) - 04/18/2018 2:43 PM OCULAR CARE AIDE Alban Sanchez MD LAB BLOOD ORDERABLES Final R esult Performing Organization Address [facility] Co de Phone Number JENNY BARONE (RADHA) 1 [facility] Department [place] [address] * (ABNORMAL) Lipid panel (03/08/2014 10:57 AM OCULAR CARE AIDE) Triglycerides 74 0 - 199 mg/dL 03/08/2014 11:53 AM [facility] Department of Health and Human Services HISTORICAL RESULTS Comment:12 hr pc highly wen mmended for Triglyceride Cholesterol 197 0 - 199 mg/dL 03/08/2014 11:53 AM [facility] Department of Health and Human Services HISTORICAL RESULTS Comment: Borderline: 200-239 High Risk: >239 HDL Cholesterol 70(H) 40 - 60 mg/dL 03/08/2014 11:53 AM [facility] [employer] [facility] HISTORICAL RESULTS Comment: Major Risk < 40 mg/dL Moderate Risk 40-60 mg/dL Negative Risk > 60 mg/dL LDL Cholesterol, Calc 112 0 - 130 mg/dL 03/08/2014 11:53 AM [facility] Department of Health and Human Services HISTORICAL RESULTS Comment:High Risk > 159 mg/d L Cholesterol/HDL Ratio 2.8 03/08/2014 11:53 AM [facility] [employer] [facility] HISTORICAL RESULTS Comment: Cholesterol / HDL Ratio 3.5:1 or less is desirable. Cholesterol / HDL Ratio greater than 5:1 is considered higher risk for developing heart disease. 03/08/2014 10:5 7 AM OCULAR CARE AIDE 03/08/2014 11:22 AM [facility] Narrative [facility] [employer] [facility] HISTORICAL RESULTS - 03/08/2014 11:[address] Alban Sanchez MD LAB BLOOD ORDERABLES Final R esult [facility] HISTORICAL RESULTS from Last 3 Months or Most Recently Relevant to Health Maintenance Insurance MEDICARE [facility] [id number] MEDICARE [facility] Care Teams Door Installer Relationship Specialty Start Date End Date Luis Zaman MD [facility] [place] [address] PCP - General 04/17/16
[2024-05-26 13:34] LABS: Hematocrit 43.1 % (37.0-47.0); Hemoglobin 13.5 g/dL (12.0-15.0); Mean Corpuscular HGB Conc 31.3 g/dl (32-36); Mean Corpuscular Hemoglobin 30.1 pg (26-34); Mean Corpuscular Volume 96.2 fl (80-100); Mean Platelet Volume 12.1 fl (7.4-10.4); Platelet Count Result 257 k/mm3 (150-375); Red Blood Count 4.48 M/mm3 (4.2-5.4); Red Cell Distribution Width 13.5 % (11.5-14.5); White Blood Count 7.4 K/mm3 (4.5-10.0)
[2024-05-26 13:52] LABS: Alanine Aminotransferase 18 U/L (6-35); Albumin Level 4.4 g/dL (3.5-5.1); Alkaline Phosphatase 92 U/L (38-126); Anion Gap 12 mmol/L (4-12); Aspartate Amino Transferase 40 U/L (14-36); Bilirubin,Total 0.8 mg/dL (0.2-1.3); Blood Urea Nitrogen 20 mg/dL (7-17); Calcium 9.3 mg/dL (8.4-10.2); Carbon Dioxide 26 mmol/L (22-30); Chloride 102 mmol/L (98-107); Cholesterol 200 mg/dL (0-200); Estimated Glomerular Filt Rate 44; Glucose 122 mg/dL (65-110); HDL Direct 78 mg/dL; Potassium 4.6 mmol/L (3.4-5.0); Sodium 140 mmol/L (137-145); Triglycerides 62 mg/dL (<150)
[2024-05-26 14:03] LABS: LDL Cholesterol Direct 84 mg/dL
== END 2024-05-26 10:11 | disposition home or self-care (01) ==
PROVIDERS: PCP Family Medicine; Visit Provider Family Medicine
DX: E07.9 Disorder of thyroid, unspecified (principal); E78.5 Hyperlipidemia, unspecified; E55.9 Vitamin D deficiency, unspecified; Z79.899 Other long term (current) drug therapy; R73.09 Other abnormal glucose; I12.9 Hypertensive chronic kidney disease with stage 1 through stage 4 chronic kidney disease, or unspecified chronic kidney disease; N18.31 Chronic kidney disease, stage 3a
CPT/HCPCS: 36415; 80053; 80061; 82652; 83036; 84439; 84443; 85027

== ENCOUNTER 2024-09-10 09:51 | Outpatient (CLI) | payer MEDICARE, SELFPAY ==
[2024-09-10 12:40] LABS: Hematocrit 43.1 % (37.0-47.0); Hemoglobin 13.5 g/dL (12.0-15.0); Mean Corpuscular HGB Conc 31.3 g/dl (32-36); Mean Corpuscular Hemoglobin 30.3 pg (26-34); Mean Corpuscular Volume 96.6 fl (80-100); Platelet Count Result 251 k/mm3 (150-375); Red Blood Count 4.46 M/mm3 (4.2-5.4); Red Cell Distribution Width 14.2 % (11.5-14.5); White Blood Count 6.6 K/mm3 (4.5-10.0)
[2024-09-10 12:53] LABS: Albumin Level 4.4 g/dL (3.5-5.1); Anion Gap 9 mmol/L (4-12); Blood Urea Nitrogen 13 mg/dL (7-17); Calcium 9.6 mg/dL (8.4-10.2); Carbon Dioxide 26 mmol/L (22-30); Chloride 105 mmol/L (98-107); Estimated Glomerular Filt Rate 48; Glucose 98 mg/dL (65-110); Potassium 4.2 mmol/L (3.4-5.0); Sodium 140 mmol/L (137-145)
[2024-09-10 13:00] LABS: Creatinine Urine 56.9 mg/dL; Total Protein Urine Random 8 mg/dL; Ur Ttl Prot Creatinine Ratio 0.14 mg/mg (0-0.20)
[2024-09-10 13:02] LABS: Parathyroid Intact 33.8 pg/mL (14.5-75.2)
== END 2024-09-10 09:52 | disposition home or self-care (01) ==
PROVIDERS: PCP Family Medicine; Visit Provider Internal Medicine Nephrology
DX: N18.31 Chronic kidney disease, stage 3a (principal); N28.9 Disorder of kidney and ureter, unspecified
CPT/HCPCS: 36415; 80069; 82570; 83970; 84156; 85027

== ENCOUNTER 2024-11-02 08:44 | Outpatient (CLI) | payer MEDICARE, SELFPAY ==
--- OUTSIDE RECORDS SUMMARY | 2024-11-02 09:01 | XMS_ITS | Continuity of Care Document ---
Author Organization [facility] Address [address] [facility] utive [facility] [address] [place] [address] Phone Care Team Providers Care Carpenter Rough Name Role Phone Gorge Gunderson Unavailable Unavailable Procedures Procedure Date Eye Exam, New Patient Refraction Advance Directives Directive Yes / No Effective Date File Name No Information Encounters Encounter Description Practice Location Reason(s) For Visit Diagnoses Date Provider Providers Copied on Encounter [facility], [address], [place], [place], [id number], [place] tel:[phone] [facility] No Information [address]. [address] [facility] [address], [address], [place]. tel:[phone] Family History Family Member Type Diagnosis Age At Onset No Information Payers Payer name Insurance type Covered alliance party ID Authoriza tion(s) Medicare [facility] [id number] [place] [id number] Social History Type Description Quantity Date Captured [...]
--- OUTSIDE RECORDS SUMMARY | 2024-11-02 09:01 | XMS_ITS | Clinical Summary ---
Author Organization [employer] [id number] [facility] Address [address] [place] [address] Care Team Providers Care Foundry Process Engineer Name Role Phone Luis Zaman MD Primary Care Provider Allergies Active Allergy Reactions Criticality Noted Date [...] 1:26 PM CDT Height 165.1 cm (5' 5) 09/24/2018 1:26 PM CDT Body Mass Index [...] 50+ YEA RS (2 of 2 - PPSV23, PCV20, or PCV21) 01/30/2017 12/05/2016 DIABETES HBA1C Q 6 MONTHS 10/16/2018 04/18/2018 INFLUENZA VACCINE (#1) 2024 5, 12/13/2013, 12/08/2013 Insurance MEDICARE PART A AND B [facility] SUPP Care Teams Foundry Process Engineer Relationship Specialty Start Date End Date Luis Zaman MD PCP - General Family Practice 09/22/18
--- OUTSIDE RECORDS SUMMARY | 2024-11-02 09:01 | XMS_ITS | Clinical Summary ---
Author Organization [facility] Address [address] [place] [address] Care Team Providers Care Prefinish Operator Name Role Phone Luis Zaman MD Primary Care Provider [phone]- [phone] Allergies Active Allergy Reactions Criticality Noted Date [...] amLODIPine (NORVASC) 5 mg tablet 7 Active cholecalciferol 25 mcg (1,000 unit) tablet Take 1 tablet (1,000 Units total) by mouth daily Active levothyroxine (SYNTHROID) 100 mcg tabletIndications:P ostablative hypothyroidism Take 1 tablet (100 mcg total) by mouth daily 90 tablet 3 5 09/29/19 26 Active Active Problems Problem Noted Date Diagnosed [...] eyelid 06/24/2013 Unspecified inflammation of eyelid 05/20/2013 Encounters Date Type Department Care Team Description 09/30/2024 Telephone [facility] Specialists of [address] [address] Valerie Ansari MD Review Medications 09/28/2024 9:15 AM CDT Office Visit [facility] Diabetes and Endocrinology [address] [place] [address] Valerie Ansari MD Postablative hypothyroidism (Primary Dx); Pre-diabetes from Last 3 Months Immunizations Immunization Administration Dates Next Due Influenza, [...] Tobacco: Never Tobacco Cessation:Counseling Given: Not Answered Comments Unknown Sex and Gender Information Value Date Recorded Sex Assigned at Not on file Legal Sex Female 7:21 PM FINANCIAL PLANNING ADVISER Gender Identity Not on file Sexual Orientation Not on file Obstetrics History Last Filed Vital Signs Vital Sign Reading Time Taken Comments Blood Pressure 130/80 09/28/2024 9:17 AM CDT Pulse 60 09/28/2024 9:17 AM CDT Temperature - - Respiratory Rate 15 09/28/2024 9:17 AM CDT Oxygen Saturation 99% 05/08/2023 11:01 AM FINANCIAL PLANNING ADVISER Inhaled Oxygen Concentration - - Weight 59 kg (130 lb) 09/28/2024 9:17 AM CDT Height 165.1 cm (5' 5) 09/28/2024 9:17 AM CDT Body Mass Index 21.63 09/28/2024 9:17 AM CDT Plan of Treatment Health Maintenance Due Date Last Done Comments Osteoporosis Screening-Bone Density Scan 1940 Dilated Eye Exam 1940 Foot Exam 1940 DTaP/Tdap/Td Vaccine (1 - Tdap) 09/17/1950 Hepatitis B Screening 09/17/1957 Zoster Vaccine (1 of 2) 09/17/1989 Well Visit 65+ 09/17/2004 Lipid Panel 03/08/2015 03/08/2014 Pneumococcal vaccine 65+ (2 of 2 - PPSV23, PCV20, or PCV21) 01/30/2017 12/05/2016 Depression Screening 10/15/2017 10/15/2016 eGFR 04/18/2019 04/18/2018 Hemoglobin A1C 03/26/2024 09/24/2023, 07/0 09/2022, 09/21/2021, Additional history exists Fall Risk Assessment 09/22/2024 09/23/2023 Albumin Creatinine Ratio, Urine 09/23/2024 Influenza Vaccine (#1) 2024 1, 11/18/2019, 01/07/2015, Additional history exists Procedures Procedure Name Priority Date/Time Associated Diagnosis Comments HEMOGLOBIN A1C Routine 09/24/2023 HM ALBUMIN CREATININE RATIO, URINE Routine 09/24/2023 EGFR Routine 04/18/2018 11:11 AM FINANCIAL PLANNING ADVISER LIPID PANEL Routine 03/08/2014 10:57 AM FINANCIAL PLANNING ADVISER from Last 3 Months or Most Recently Relevant to Health Maintenance Results * HM ALBUMIN CREATININE RATIO, URINE (09/24/2023) SCRIBED HM ALBUMIN CREATININE RATIO, URINE 0.24 EXTERNAL LAB 09/24/2023 Historical Provider HEALTH MAINTENANCE Edited Result - Final EXTERNAL LAB * HM HEMOGLOBIN A1C (09/24/2023) SCRIBED Hemoglobin A1c 6.1 % EXTERNAL LAB 09/24/2023 Historical Provider MD HEALTH MAINTENANCE Final Result EXTERNAL LAB * eGFR (04/18/2018 11:11 AM FINANCIAL PLANNING ADVISER) eGFR 50 mL/min/1.7 3 m2 JENNY BARONE (RADHA) Comment: Interpretive Data Reference Interval Normal >/= 90 mL/min/1.73m2 Mildly decreased* 60 - 89 mL/min/1.73m2 Mildly to moderately decreased 45 - 59 mL/min/1.73m2 Moderately to severely decreased 30 - 44 mL/min/1.73m2 Severely decreased 15 - 29 mL/min/1.73m2 Kidney Failure < 15 mL/min/1.73m2 *Relative to young adult level If -Northern Irish multiply value by 1.16. Estimated glomerular filtration [...] 2015. Blood specimen (specimen) 04/18/2018 11:11 AM FINANCIAL PLANNING ADVISER 04/18/2018 2:14 PM FINANCIAL PLANNING ADVISER Narrative JENNY BARONE (RADHA) - 04/18/2018 2:43 PM FINANCIAL PLANNING ADVISER Alban Sanchez MD LAB BLOOD ORDERABLES Final R esult Performing Organization Address [facility] Co de Phone Number JENNY BARONE ([place]) 1 [facility] [place] [address] * (ABNORMAL) Lipid panel (03/08/2014 10:57 AM FINANCIAL PLANNING ADVISER) Triglycerides 74 0 - 199 mg/dL Comment:12 hr pc highly wen mmended for Triglyceride Cholesterol 197 0 - 199 mg/dL Comment: Borderline: 200-239 High Risk: >239 HDL Cholesterol 70(H) 40 - 60 mg/dL Comment: Major Risk < 40 mg/dL Moderate Risk 40-60 mg/dL Negative Risk > 60 mg/dL LDL Cholesterol, Calc 112 0 - 130 mg/dL Comment:High Risk > 159 mg/d L Cholesterol/HDL Ratio 2.8 Comment: Cholesterol / HDL Ratio 3.5:1 or less is desirable. Cholesterol / HDL Ratio greater than 5:1 is considered higher risk for developing heart disease. 03/08/2014 10:5 7 AM FINANCIAL PLANNING ADVISER 03/08/2014 11:22 AM [facility] [employer] [email or web address] HISTORICAL RESULTS - 03/08/2014 11:53 AM FINANCIAL PLANNING ADVISER [facility] Alban Sanchez MD LAB BLOOD ORDERABLES Final R esult Performing Organization Address City/[facility]/ZIP Co de Phone Number [facility] HISTORICAL RESULTS from Last 3 Months or Most Recently Relevant to Health Maintenance Insurance MEDICARE [facility] [address] [facility] MEDICARE SUPPLEMENT Member Subscriber Plan / Payer (Ef fective 2019-Present) Name:Mylene Juarez Relation to Subscriber:Self Name:Mylene Juarez Payer ID:[id number] Group ID:[id number] Type:COMMERCIAL Address: [facility] [id number] [place] [id number] Care Teams Prefinish Operator Relationship Specialty Start Date End Date Luis Zaman MD [facility] [place] [address] PCP - General 04/17/16
--- OUTSIDE RECORDS SUMMARY | 2024-11-02 09:01 | XMS_ITS | Clinical Summary ---
Author Organization [facility] Address [address] [place] [phone] Phone Care Team Providers Care Manager Support Services Name Role Phone Luis Zaman MD Primary Care Provider [phone] Allergies Active Allergy Reactions Criticality Noted Date Comments Niacin Hives,Itching,Other (see comments) 09/24/2018 Reaction: Other, Nsaids Other (see comments) 09/24/2018 Stage 3 kidney disease won't permit Simvastatin Diarrhea,Nausea And Vomiting 09/24/2018 Other reaction(s): Other (See comments), Vomiting Reaction: Other, , Reaction: Diarrhea, Vomiting, , Medications levothyroxine (SYNTHROID, LEVOTHROID) 88 MCG tablet 1 daily 0 08/04/2014 Active polyethylene glycol (MIRALAX) powder 17g daily 0 05/22/2017 Active aspirin 81 MG chewable tablet 1qd 0 05/22/2017 Act katherine amLODIPine (NORVASC) 5 MG tablet 1 tablet [...] unspecified chronic kidney disease 09/27/2011 10/04/2021 Immunizations Immunization Administration Dates Next Due Fluzone High-Dose 11/18/2019 [...] at Not on file Legal Sex Female 8:40 AM [facility] Gender Identity Not on file Sexual Orientation Not on file Last Filed Vital Signs Vital Sign Reading Time Taken Comments Blood Pressure 128/60 10/04/2021 10:11 AM CDT Pulse 72 10/04/2021 10:11 AM CDT Temperature 36.6 C (97.8 F) 10/04/2021 10:11 AM CDT Respiratory Rate 20 05/23/2016 12:01 AM MANAGER DISCOVERY Oxygen Saturation - - Inhaled Oxygen Concentration - - Weight 60.8 kg (134 lb) 10/04/2021 10:11 AM CDT Height 165.1 cm (5' 5) 10/04/2021 10:11 AM CDT Body Mass Index 22.3 10/04/2021 10:11 AM CDT Plan of Treatment Health Maintenance Due Date Last Done Comments Pneumococcal PPSV23/PCV13 65 + Years / Low and Medium Risk (2 of 3 - PCV20 or PCV21) 12/05/2017 12/05/2016 Influenza Vaccine (#1) 2024 0, 01/07/2015, 12/08/2013 Insurance MEDICARE [facility] Care Teams Manager Support Services Relationship Specialty Start Date End Date Luis Zaman MD [facility] [place] [address] PCP - General 05/21/18
[2024-11-02 13:13] LABS: Hematocrit 40.7 % (37.0-47.0); Hemoglobin 13.1 g/dL (12.0-15.0); Mean Corpuscular HGB Conc 32.2 g/dl (32-36); Mean Corpuscular Hemoglobin 31.1 pg (26-34); Mean Corpuscular Volume 96.7 fl (80-100); Platelet Count Result 234 k/mm3 (150-375); Red Blood Count 4.21 M/mm3 (4.2-5.4); White Blood Count 5.6 K/mm3 (4.5-10.0)
[2024-11-02 13:25] LABS: Alanine Aminotransferase 16 U/L (6-35); Albumin Level 4.2 g/dL (3.5-5.1); Alkaline Phosphatase 64 U/L (38-126); Anion Gap 7 mmol/L (4-12); Aspartate Amino Transferase 22 U/L (14-36); Bilirubin,Total 0.6 mg/dL (0.2-1.3); Blood Urea Nitrogen 19 mg/dL (7-17); Calcium 9.9 mg/dL (8.4-10.2); Carbon Dioxide 25 mmol/L (22-30); Chloride 104 mmol/L (98-107); Cholesterol 179 mg/dL (0-200); Estimated Glomerular Filt Rate 44; Glucose 97 mg/dL (65-110); HDL Direct 68 mg/dL; Potassium 4.4 mmol/L (3.4-5.0); Sodium 136 mmol/L (137-145); Total Protein 7.0 g/dL (6.3-8.2); Triglycerides 69 mg/dL (<150)
[2024-11-02 13:33] LABS: Total Protein Urine Random 10 mg/dL; Ur Ttl Prot Creatinine Ratio 0.11 mg/mg (0-0.20)
[2024-11-02 13:34] LABS: Free T4 Free Thyroxine 1.29 ng/dL (0.78-2.19)
[2024-11-02 13:36] LABS: Parathyroid Intact 24.9 pg/mL (14.5-75.2)
[2024-11-02 13:54] LABS: Thyroid Stimulating Hormone 1.370 uIU/mL (0.465-4.680)
[2024-11-02 21:41] LABS: Hemoglobin A1C 6.1 % (<5.7)
== END 2024-11-02 08:45 | disposition home or self-care (01) ==
LOC: ANHGOSHLAB 08:46
PROVIDERS: PCP Family Medicine; Visit Provider Internal Medicine Nephrology
DX: E78.5 Hyperlipidemia, unspecified (principal); E07.9 Disorder of thyroid, unspecified; R73.09 Other abnormal glucose; E55.9 Vitamin D deficiency, unspecified; Z79.899 Other long term (current) drug therapy; E89.0 Postprocedural hypothyroidism; I12.9 Hypertensive chronic kidney disease with stage 1 through stage 4 chronic kidney disease, or unspecified chronic kidney disease; N18.31 Chronic kidney disease, stage 3a
CPT/HCPCS: 36415; 80053; 80061; 82570; 83036; 83970; 84100; 84156; 84439; 84443; 85027

== ENCOUNTER 2024-11-28 11:19 | Emergency (ER) | payer MEDICARE, SELFPAY ==
--- OUTSIDE RECORDS SUMMARY | 2009-03-25 04:45 | XMS_ITS | Continuity of Care Document ---
Author Organization Formerly [facility] Address [address] [facility] [address] [facility] [address] [place] [address] Phone Care Team Providers Care Medical Billing Instructor Name Role Phone Gorge Gunderson Unavailable Unavailable Procedures Procedure Date Eye Exam, New Patient Refraction Advance Directives Directive Yes / No Effective Date File Name No Information Encounters Encounter Description Practice Location Reason(s) For Visit Diagnoses Date Provider Providers Copied on Encounter [facility], [address], [place], [place], [id number], [place] tel:[phone] [facility] No Information [address] Neptali Pennington. [address] [facility] [address], [place], [address], [place]. tel:[phone] Family History Family Member Type Diagnosis Age At Onset No Information Payers Payer name Insurance type Covered constitution party ID Authoriza tion(s) Medicare [facility] [id number] BCBS [place] Commercial [id number] Social History Type Description Quantity Date Captured Comments Sex Female Smoking Status No Information Chief Complaint And Reason For Visit No Information Reason For Referral Reason For Referral No Information History Of Present Illness Encounter Date Complaint History Of Prese nt Illness No Information Functional Status Date Functional Assessmen t No Information Instructions Date Instruction Additional Infor mation No Information Assessments Type Assessment Date No Information Patient Care Teams Name Effective Dates (start - stop) Status Members No Information
--- OUTSIDE RECORDS SUMMARY | 2009-03-25 04:45 | XMS_ITS | Continuity of Care Document ---
Author Organization [facility] Address [address] [facility] [address] [facility] [address] [place] [address] Phone Care Team Providers Care Master Welder Name Role Phone Gorge Gunderson Unavailable Unavailable Procedures Procedure Date Eye Exam, New Patient Refraction Advance Directives Directive Yes / No Effective Date File Name No Information Encounters Encounter Description Practice Location Reason(s) For Visit Diagnoses Date Provider Providers Copied on Encounter [facility], [address], [place], [place], [id number], [place] tel:[phone] [facility] No Information [address] Neptali Pennington. [address] [facility] [address], [address], [place]. tel:[phone] Family History Family Member Type Diagnosis Age At Onset No Information Payers Payer name Insurance type Covered republican ID Authoriza tion(s) Medicare [facility] [id number] [place]BS [place] Commercial [id number] Social History Type Description Quantity Date Captured [...]
[2024-11-28] VITALS (7 sets, daily range): BP systolic 102–113; BP diastolic 58–60; PULSE 0–70; RESP 10–21; TEMP 36.8; O2SAT 95–97
--- NOTE | ~2024-11-28 | XR_ITS ---
EXAMINATION: XR chest 1V portable COMPARISON: No comparisons available. HISTORY: weakness FINDINGS: The lungs are clear, no effusion. No pneumothorax. Heart is normal size. Mediastinal and hilar contours are within normal limits. Bony thorax no acute abnormality. Miscellaneous: None Impression: No acute cardiopulmonary abnormality. Reviewed, dictated and finalized at location A. Impression: No acute cardiopulmonary abnormality.
--- OUTSIDE RECORDS SUMMARY | 2024-11-28 11:21 | XMS_ITS | Clinical Summary ---
Author Organization [employer] [id number] [facility] Address [address] [place] [address] Care Team Providers Care Smoke Tester Name Role Phone Luis Zaman MD Primary Care Provider [phone] Allergies Active Allergy Reactions Criticality Noted Date [...] 12/08/2013 Insurance MEDICARE PART A AND B [facility] SUPP Care Teams Smoke Tester Relationship Specialty Start Date End Date Luis Zaman MD PCP - General Family Practice 09/22/18
--- OUTSIDE RECORDS SUMMARY | 2024-11-28 11:21 | XMS_ITS | Clinical Summary ---
Author Organization [facility] Address [address] [place] [phone] Phone Care Team Providers Care Mfts Name Role Phone Luis Zaman MD Primary Care Provider [phone] Allergies Active Allergy Reactions Criticality Noted Date [...] on file Legal Sex Female 8:40 AM [facility] Gender Identity Not on file Sexual Orientation Not on file Last Filed Vital Signs Vital Sign Reading Time Taken Comments Blood Pressure 128/60 10/04/2021 10:11 AM CDT Pulse 72 10/04/2021 10:11 AM CDT Temperature 36.6 C (97.8 F) 10/04/2021 10:11 AM CDT Respiratory Rate 20 05/23/2016 12:01 AM TEMPLE MEAT CUTTER Oxygen Saturation - - Inhaled Oxygen Concentration [...] (#1) 2024 0, 01/07/2015, 12/08/2013 Insurance MEDICARE [facility] Care Teams Mfts Relationship Specialty Start Date End Date Luis Zaman MD [facility] [place] [address] PCP - General 05/21/18
--- OUTSIDE RECORDS SUMMARY | 2024-11-28 11:21 | XMS_ITS | Clinical Summary ---
Author Organization [facility] Address [address] [place] [address] Care Team Providers Care Pest Locator Name Role Phone Luis Zaman MD Primary Care Provider [phone] Allergies Active Allergy Reactions Criticality Noted Date [...] Encounters Date Type Department Care Team Description 11/13/2024 Results Follow-Up [facility] Specialists of [address] [address] Valerie Ansari MD TSH, T4, free 09/30/2024 Telephone [facility] Specialists of [address] [address] Valerie Ansari MD Review Medications 09/28/2024 9:15 AM CDT Office Visit [facility] Medical Group Diabetes and Endocrinology [address] [place] [phone] Valerie Ansari MD Postablative hypothyroidism (Primary [...] on file Legal Sex Female 7:21 PM SUPERVISOR CLAIMS Gender Identity Not on file Sexual Orientation Not on file Obstetrics History Last Filed Vital Signs Vital Sign Reading Time Taken Comments Blood Pressure 130/80 09/28/2024 9:17 AM CDT Pulse 60 09/28/2024 9:17 AM CDT Temperature - - Respiratory Rate 15 09/28/2024 9:17 AM CDT Oxygen Saturation 99% 05/08/2023 11:01 AM SUPERVISOR CLAIMS Inhaled Oxygen Concentration - - Weight 59 [...] 09/22/2024 09/23/2023 Albumin Creatinine Ratio, Urine 09/23/2024 07/09/202 4 Influenza Vaccine (#1) 2024 1, 11/18/2019, 01/07/2015, Additional history exists Procedures Procedure Name Priority Date/Time Associated Diagnosis Comments PTH INTACT - PARATHYROID HORMONE Routine 11/02/2024 T4, FREE Routine 11/02/2024 Postablative hypothyroidism TSH Routine 11/02/2024 Postablative hypothyroidism HM HEMOGLOBIN A1C Routine 09/24/2023 HM ALBUMIN CREATININE RATIO, URINE Routine 09/24/2023 EGFR Routine 04/18/2018 11:11 AM SUPERVISOR CLAIMS LIPID PANEL Routine 03/08/2014 10:57 AM SUPERVISOR CLAIMS from Last 3 Months or Most Recently Relevant to Health Maintenance Results * PTH Intact - Parathyroid Hormone (11/02/2024) 11/02/2024 Impressions EXTERNAL LAB - 11/02/2024 24.9 14.5-75.2 us Historical Provider LAB BLOOD ORDERABLES Jyothi l Result EXTERNAL LAB * TSH (11/02/2024) Scribed TSH 1.37 0.47 - 4.68 mcU/mL EXTERNAL LAB Blood 11/02/2024 us Valerie Chao MD LAB BLOOD ORDERABLE S Final Result EXTERNAL LAB * T4, free (11/02/2024) SCRIBED T4, Free 1.29 0.78 - 2.19 mcg/dL EXTERNAL LAB Blood 11/02/2024 Valerie Chao MD LAB BLOOD ORDERABLE S Final Result EXTERNAL LAB * HM ALBUMIN CREATININE RATIO, URINE (09/24/2023) SCRIBED HM ALBUMIN CREATININE RATIO, URINE 0.24 EXTERNAL LAB 09/24/2023 Historical Provider HEALTH MAINTENANCE Edited Result - Final Performing Organization Address City/[facility]/ZIP Co de Phone Number EXTERNAL LAB * HM HEMOGLOBIN A1C (09/24/2023) SCRIBED Hemoglobin A1c 6.1 % EXTERNAL LAB 09/24/2023 Historical Provider HEALTH MAINTENANCE Final Result Performing Organization Address [facility] Co de Phone Number EXTERNAL LAB * eGFR (04/18/2018 11:11 AM SUPERVISOR CLAIMS) eGFR 50 mL/min/1.7 3 m2 JENNY BARONE (RADHA) Comment: Interpretive Data Reference Interval Normal >/= 90 mL/min/1.73m2 Mildly decreased* 60 - 89 mL/min/1.73m2 Mildly to moderately decreased 45 - 59 mL/min/1.73m2 Moderately to severely decreased 30 - 44 mL/min/1.73m2 Severely decreased 15 - 29 mL/min/1.73m2 Kidney Failure < 15 mL/min/1.73m2 *Relative to young adult level If -Czech multiply value by 1.16. Estimated glomerular filtration [...] 2015. Blood specimen (specimen) 04/18/2018 11:11 AM SUPERVISOR CLAIMS 04/18/2018 2:14 PM SUPERVISOR CLAIMS Narrative JENNY BARONE (RADHA) - 04/18/2018 2:43 PM SUPERVISOR CLAIMS Alban Sanchez MD LAB BLOOD ORDERABLES Final R esult Performing Organization Address [facility] Co de Phone Number JENNY BARONE (RADHA) 1 [facility] Department [place] [address] * (ABNORMAL) Lipid panel (03/08/2014 10:57 AM SUPERVISOR CLAIMS) Triglycerides 74 0 - 199 mg/dL Comment:12 [...] developing heart disease. 03/08/2014 10:5 7 AM SUPERVISOR CLAIMS 03/08/2014 11:22 AM [facility] Narrative [facility] HISTORICAL RESULTS - 03/08/2014 11:53 AM SUPERVISOR CLAIMS 12P Alban Sanchez MD LAB BLOOD ORDERABLES Final R esult Performing Organization Address [facility]/ZIP Co de Phone Number [facility] HISTORICAL RESULTS from Last 3 Months or Most Recently Relevant to Health Maintenance Insurance MEDICARE MEDICARE [facility] MEDICARE [facility] MEDICARE SUPPLEMENT Care Teams Pest Locator Relationship Specialty Start Date End Date Luis Zaman MD [facility] [place] [address] PCP - General 04/17/16
--- NOTE | 2024-11-28 11:25 | ECG_ITS ---
Test Date: 2024-11-28 11:29:14 Measurements Intervals [place] Rate: 74 P: 45 AK: 164 QRS: -13 QRSD: 86 T: 64 QT: 357 QTc: 397 Interpretive Statements SINUS RHYTHM WITH OCCASIONAL SUPRAVENTRICULAR PREMATURE COMPLEXES LOW QRS VOLTAGE IN PRECORDIAL LEADS [QRS DEFLECTION < 1.0 mV IN CHEST LEADS] POSSIBLE ANTERIOR MYOCARDIAL INFARCTION , PROBABLY OLD [30 ms Q WAVE IN V3/V4, OR R < 0.2 mV IN V4] INFERIOR MYOCARDIAL INFARCTION , PROBABLY OLD [40+ ms Q WAVE AND/OR ST/T ABNORMALITY IN II/aVF] ABNORMAL ECG No previous ECG available for comparison Electronically Signed On 11-28-2024 12:34:38 CDT by Honorio Najera M.D.
--- OUTSIDE RECORDS SUMMARY | 2024-11-28 11:43 | XMS_ITS | Clinical Summary ---
Author Organization [facility] Address [address] [place] [address] Phone Care Team Providers Care Sleever Name Role Phone Luis Zaman MD Primary [...] on file Legal Sex Female 8:40 AM [facility] Gender Identity Not on file Sexual Orientation Not on file Last Filed Vital Signs Vital Sign Reading Time Taken Comments Blood Pressure 128/60 10/04/2021 10:11 AM CDT Pulse 72 10/04/2021 10:11 AM CDT Temperature 36.6 C (97.8 F) 10/04/2021 10:11 AM CDT Respiratory Rate 20 05/23/2016 12:01 AM CREATIVE WRITING PROFESSOR Oxygen Saturation - - Inhaled Oxygen Concentration [...] (#1) 2024 0, 01/07/2015, 12/08/2013 Insurance MEDICARE [facility] Care Teams Sleever Relationship Specialty Start Date End Date Luis Zaman MD [facility] [place] [address] PCP - General 05/21/18
--- OUTSIDE RECORDS SUMMARY | 2024-11-28 11:43 | XMS_ITS | Clinical Summary ---
Author Organization [facility] [address] [facility] Address [address] [place] [address] Care Team Providers Care Box Car Loader Name Role Phone Luis Zaman MD Primary Care Provider [phone] Allergies Active Allergy Reactions Criticality Noted Date [...] 12/08/2013 Insurance MEDICARE PART A AND B [facility] SUPP Care Teams Box Car Loader Relationship Specialty Start Date End Date Luis Zaman MD PCP - General Family Practice 09/22/18
--- OUTSIDE RECORDS SUMMARY | 2024-11-28 11:43 | XMS_ITS | Clinical Summary ---
Author Organization [facility] Address [address] [place] [phone] Care Team Providers Care Tanning Solution Maker Name Role Phone Lius Zaman MD Primary Care Provider [phone] Allergies Active Allergy Reactions Criticality Noted Date [...] Department Care Team Description 11/13/2024 Results [place] [facility] [address] [address] Valerie Ansari MD TSH, T4, free 09/30/2024 Telephone [facility] [address] [address] Valerie Ansari MD Review Medications 09/28/2024 9:15 AM CDT Office Visit [facility] Diabetes and Endocrinology [address] [place] [phone] Valerie Ansari MD Postablative hypothyroidism (Primary [...] on file Legal Sex Female 7:21 PM INTEGRATIVE MEDICINE PHYSICIAN Gender Identity Not on file Sexual Orientation Not on file Obstetrics History Last Filed Vital Signs Vital Sign Reading Time Taken Comments Blood Pressure 130/80 09/28/2024 9:17 AM CDT Pulse 60 09/28/2024 9:17 AM CDT Temperature - - Respiratory Rate 15 09/28/2024 9:17 AM CDT Oxygen Saturation 99% 05/08/2023 11:01 AM INTEGRATIVE MEDICINE PHYSICIAN Inhaled Oxygen Concentration - - Weight 59 [...] Routine 09/24/2023 EGFR Routine 04/18/2018 11:11 AM INTEGRATIVE MEDICINE PHYSICIAN LIPID PANEL Routine 03/08/2014 10:57 AM INTEGRATIVE MEDICINE PHYSICIAN from Last 3 Months or Most Recently [...] Edited Result - Final Performing Organization Address City/[facility]/ZIP Co de Phone Number EXTERNAL LAB * HM HEMOGLOBIN A1C (09/24/2023) SCRIBED Hemoglobin A1c 6.1 % EXTERNAL LAB 09/24/2023 Historical Provider HEALTH MAINTENANCE Final Result Performing Organization Address [facility] Co de Phone Number EXTERNAL LAB * eGFR (04/18/2018 11:11 AM INTEGRATIVE MEDICINE PHYSICIAN) eGFR 50 mL/min/1.7 3 m2 JENNY BARONE (RADHA) Comment: Interpretive Data Reference Interval Normal >/= 90 mL/min/1.73m2 Mildly decreased* 60 - 89 mL/min/1.73m2 Mildly to moderately decreased 45 - 59 mL/min/1.73m2 Moderately to severely decreased 30 - 44 mL/min/1.73m2 Severely decreased 15 - 29 mL/min/1.73m2 Kidney Failure < 15 mL/min/1.73m2 *Relative to young adult level If -[place] multiply value by 1.16. Estimated glomerular filtration [...] 2015. Blood specimen (specimen) 04/18/2018 11:11 AM INTEGRATIVE MEDICINE PHYSICIAN 04/18/2018 2:14 PM INTEGRATIVE MEDICINE PHYSICIAN Narrative JENNY BARONE (RADHA) - 04/18/2018 2:43 PM INTEGRATIVE MEDICINE PHYSICIAN lAban Sanchez MD LAB BLOOD ORDERABLES Final R esult Performing Organization Address [facility] Co de Phone Number JENNY BARONE (RADHA) 1 [facility] Department [place] [address] * (ABNORMAL) Lipid panel (03/08/2014 10:57 AM INTEGRATIVE MEDICINE PHYSICIAN) Triglycerides 74 0 - 199 mg/dL Comment:12 [...] developing heart disease. 03/08/2014 10:5 7 AM INTEGRATIVE MEDICINE PHYSICIAN 03/08/2014 11:22 AM [facility] Narrative [facility] HISTORICAL RESULTS - 03/08/2014 11:53 AM INTEGRATIVE MEDICINE PHYSICIAN 12P Alban Sanchez MD LAB BLOOD ORDERABLES Final R esult Performing Organization Address [facility]/ZIP Co de Phone Number [facility] HISTORICAL RESULTS from Last 3 Months or Most Recently Relevant to Health Maintenance Insurance MEDICARE MEDICARE [facility] MEDICARE [facility] MEDICARE SUPPLEMENT Care Teams Tanning Solution Maker Relationship Specialty Start Date End Date Luis Zaman MD [facility] [address] PCP - General 04/17/16
[2024-11-28 11:44] LABS: Hematocrit 39.7 % (37.0-47.0); Hemoglobin 13.3 g/dL (12.0-15.0); Immature Granulocyte Percent A 0.4 % (0-0.5); Lymphocytes Absolute Auto 1.05 K/mm3 (0.9-3.2); Mean Corpuscular HGB Conc 33.5 g/dl (32-36); Mean Corpuscular Hemoglobin 30.9 pg (26-34); Mean Corpuscular Volume 92.1 fl (80-100); Nucleated Red Blood Cells Absolute Auto 0.000 K/mm3 (0.0-0.012); Nucleated Red Blood Cells Perc 0.0 % (0.0-0.2); Platelet Count Result 245 k/mm3 (150-375); Red Blood Count 4.31 M/mm3 (4.2-5.4); White Blood Count 8.3 K/mm3 (4.5-10.0)
[2024-11-28 11:58] LABS: Alanine Aminotransferase 17 U/L (6-35); Albumin Level 4.0 g/dL (3.5-5.1); Alkaline Phosphatase 86 U/L (38-126); Anion Gap 12 mmol/L (4-12); Aspartate Amino Transferase 23 U/L (14-36); Bilirubin,Total 0.8 mg/dL (0.2-1.3); Blood Urea Nitrogen 26 mg/dL (7-17); Calcium 8.9 mg/dL (8.4-10.2); Carbon Dioxide 20 mmol/L (22-30); Chloride 100 mmol/L (98-107); Estimated CRCL calculation 22 ml/min; Estimated Glomerular Filt Rate 34; Glucose 118 mg/dL (65-110); Potassium 4.1 mmol/L (3.4-5.0); Sodium 132 mmol/L (137-145); Total Protein 7.6 g/dL (6.3-8.2)
--- NOTE | 2024-11-28 12:13 | ED_ITS ---
HPI - Weakness General Chief complaint: Weakness Stated complaint: I have been sick since Saturday Time Seen by Provider: 11/28/24 11:24 Source: patient and family () Mode of arrival: ambulatory Limitations: no limitations History of Present Illness HPI Narrative: Patient presents with report of feeling sick and weak since Saturday. Lives with who has had sinus and allergy issues but he has been outside and she does not have similar symptoms. No other known sick contacts. Denies cough, congestion, constipation, diarrhea, nausea, vomiting, chest pain, myalgias. She does not have an appetite. Notes that she has spent 3 days in bed which is unusual. States I'm just exhausted. Decreased PO intake. Not hungry. Related Data Home Medications ?Medication ?Instructions ?Recorded ?Confirmed ?Last Taken ?Type polyethylene glycol 3350 17 17 g PO DAILY PRN constipa tion 10/17/21 11/17/24 Unknown History gram/dose oral powder (Miralax) levothyroxine 100 mcg capsule 100 mcg PO DAILY 3 11/17/24 Unknown History cholecalciferol (vitamin D3) 25 25 mcg PO DAILY 11/17/24 Unknown History mcg (1,000 unit) capsule mecobalamin (vitamin B12) 1,000 1,000 mcg PO DAILY 05/1211/17/24 Unknown History mcg chewable tablet Allergies Allergy/AdvReac Type Severity Reaction Status Date / Time niacin Allergy Mild Itching Verified 11/28/24 11:19 simvastatin Allergy Mild Muscle Pain Verified 11/28/24 11:19 NSAIDS (Non-Steroidal Allergy Unknown DUE TO Verified 11/28/24 11:19 [facility] Past Medical History Medical History Loose stools HTN (hypertension) Constipation Surgical History Surgical History Status post total knee replacement, right Family History Family History Father Hypertension Heart disease Mother Hypertension Cerebrovascular accident Other Family history of arthritis Social History Social History Social History: Smoking packs per day: 0.5 Smoking cigarettes per day: 10.0 Years smoked: 15 Smoking pack-years: 7.50 Smoking status: Never smoker Smoking end date: 03/18/85 Alcohol intake: current Drinks per week: 2 Alcohol use details: ivory Substance use: never Do You Feel Safe in your Home?: Yes Lack of Transportation: No Lack of Food: Never True Current Housing: I Have Housing Concerned About Future Housing: No Difficulty Paying Gas/Electric Bills: No Difficulty Paying for Meds: No Currently Unemployed: No Education: High School Diploma/GED Difficulty w/ Childcare or Family Care: No Living arrangements: with family Additional living arrangements comments: Occupation/Education: retired Gender identity (if verbalized by the patient): Female Exam 2 Narrative: GENERAL: well-nourished, and in no acute distress. HEAD: Normocephalic, atraumatic. EYES: Non injected, non icteric ENT: Nares clear, no rhinorrhea or epistaxis. Gross auditory acuity intact. NECK: Supple. No meningismus. CHEST: Speaking in full sentences. No respiratory distress. HEART: Regular rate and rhythm. Not bradycardic at the time of my exam. . . ABDOMEN: Soft, nondistended. Not peritoneal EXTREMITIES: Normal range of motion. No lower extremity edema. SKIN: Warm, dry, no rash. NEURO: No focal deficits. Alert and oriented. Answering questions. Following commands. Normal speech without aphasia or dysarthria. PSYCH: Normal mood and affect. Course Vital Signs Vital signs: Vital Signs Pulse Rate 46 L 11/28/24 11:41 Respiratory Rate 18 11/28/24 11:41 Pulse Oximetry 96 11/28/24 11:41 Temperature 98.3 F 11/28/24 12:26 Pulse Rate 62 11/28/24 12:01 Respiratory Rate 20 11/28/24 12:01 Blood Pressure 113/60 11/28/24 12:01 Pulse Oximetry 95 11/28/24 12:01 MDM - Weakness MDM Narrative Medical decision making narrative: Patient presents generally reporting feeling sick and weak since Saturday with no appetite, decreased PO intake and generally feeling exhausted but without other symptoms on ROS. In the ED she is afebrile with VS that show slightly low BP and bradycardia though MAP 73mmHg. Mechanical issue with monitor as it seems to show HI 0/asystole on the monitor while I am in the room with patient and these VS populate in the chart; I did apply her leads as 2 of them had been off. 1 L IV fluids for LETTY are ordered. Mild hyponatremia however only a drop of 4 from previous. CBC with mild abnormalities on the differential but otherwise without leukocytosis, anemia, thrombocytopenia. Patient ambulates well on her own , viewed by lion tamer Aretha, going from bathroom back to ED room. Troponin and CPK normal. Urinalysis concerning for infection given the shon pyuria (WBC >100) and leukocyte esterase +3 despite no bacteria being seen. No previous urine culture to guide therapy although 1 from today's currently in process. Ceftriaxone ordered. Upon my first attempt to review CXR, unable to view image and there has been a delay in radiologist read. I called and discussed with semiconductor manufacturing technician who confirms the image had not been transmitted for some reason. They did call back to confirm they were able to do so later. Patient would like to go home per RN. Otherwise stable for discharge to do so but did instruct on follow up with PCP and returning to the ED in my DC instructions. Prescribed rest of course of abx as PO and advised hydrating. Differential Diagnosis Differential diagnosis: Likely acute myocardial infarction, anemia, hypoglycemia, hypothyroidism, rhabdomyolysis, sepsis, dehydration and other (Acute viral syndrome, failure to thrive, liver failure, renal failure; malignancy; infection (UTI, PNA)) Lab Data Attestation: I reviewed the patient's lab results. 11/28/24 11:38 11/28/24 11:38 Labs: Lab Results 11/28/24 11/28/24 11/28/24 Range/Units 11:38 12:21 12:44 WBC 8.3 (4.5-10.0) K/mm3 RBC 4.31 (4.2-5.4) M/mm3 Hgb 13.3 (12.0-15.0) g/dL Hct 39.7 (37.0-47.0) % MCV 92.1 (80-100) fl MCH 30.9 (26-34) pg MCHC 33.5 (32-36) g/dl RDW 13.2 (11.5-14.5) % Plt Count 245 (150-375) k/mm3 MPV 10.8 H (7.4-10.4) fl Immature Gran % (Auto) 0.4 (0-0.5) % Neut % (Auto) 76.5 H (45.5-73.1) % Lymph % (Auto) 12.6 L (18.3-44.2) % [place] % (Auto) 9.7 H (2.6-8.5) % Eos % (Auto) 0.4 (0-4.4) % Baso % (Auto) 0.4 (0.2-1.2) % Lymph # (Auto) 1.05 (0.9-3.2) K/mm3 [place] # (Auto) 0.8 H (0.1-0.6) K/mm3 Eos # (Auto) 0.0 (0-0.3) K/mm3 Baso # (Auto) 0.0 (0.0-0.1) K/mm3 Abs Immat Gran (auto) 0.03 (0.00-0.031) K/mm3 Absolute Neuts (auto) 6.4 (1.3-6.7) K/mm3 Absolute Nucleated RBC 0.000 (0.0-0.012) K/mm3 Nucleated RBC % 0.0 (0.0-0.2) % Sodium 132 L (137-145) mmol/L Potassium 4.1 (3.4-5.0) mmol/L Chloride 100 (98-107) mmol/L Carbon Dioxide 20 L (22-30) mmol/L Anion Gap 12 (4-12) mmol/L BUN 26 H (7-17) mg/dL Creatinine 1.45 H (0.7-1.0) mg/dL Estim Creat Clear Calc 22 ml/min Estimated GFR 34 L (59 - ) Glucose 118 H (65-110) mg/dL Calcium 8.9 (8.4-10.2) mg/dL Magnesium 2.2 (1.6-2.3) mg/dL Total Bilirubin 0.8 (0.2-1.3) mg/dL AST 23 (14-36) U/L ALT 17 (6-35) U/L Alkaline Phosphatase 86 (38-126) U/L Total Creatine Kinase 66 (30-135) U/L Troponin I < 0.012 (0.000-0.034) ng/mL Total Protein 7.6 (6.3-8.2) g/dL Albumin 4.0 (3.5-5.1) g/dL TSH 1.960 (0.465-4.680) uIU/mL Urine Color Dark yellow (Yellow) Urine Appearance Turbid H (Clear) Urine pH 5.5 (5.0-9.0) Ur Specific [place] 1.021 (1.001-1.035) Urine Protein 1+ H (Negative) mg/dL Urine Glucose (UA) Negative (Negative) mg/dL Urine Ketones Trace H (Negative) mg/dL Ur Blood (Man) 1+ H (Negative) Urine Nitrate Negative (Negative) Urine Bilirubin Negative (Negative) Urine Urobilinogen 1.0 (<2.0) mg/dL Add Ur Microanalysis Reviewed Leukocyte Esterase Rfl 3+ H (Negative) WARREN/UL Urine RBC 3-5 H (0-2) /hpf Urine WBC >100 H (0-3) /hpf Ur Squamous Epith Cells None seen (Few) /hpf Urine Bacteria None seen /hpf Urine Casts 11-20 Influenza A (RT-PCR) Negative (Negative) Influenza B (RT-PCR) Negative (Negative) RSV (RT-PCR) Negative (Negative) SARS-CoV-2 RNA (RT-PCR) Negative (Negative) Imaging Data Attestation: I personally reviewed and interpreted this imaging study as follows: My impression: Hyperinflated lungs on my independent interpretation of chest x-ray Radiologist's impression: (Results after patient discharged) Impression: No acute cardiopulmonary abnormality. ECG Data EKG #1: Attestation: I personally reviewed and interpreted this ECG as follows: ECG completion date: 11/28/24 Interpretation: Normal sinus rhythm at a rate of 74 beats per minute there are occasional premature complexes. HI interval 164. QRS 86. QT/QTC 357/397. Good R-wave progression across the precordial leads although low amplitude QRS complexes in the lateral precordial leads. No ST segment elevation. No T-wave inversions. Discharge Plan Discharge Clinical Impression: Generalized weakness, Decreased appetite, Decreased oral intake, LETTY (acute kidney injury), Hyponatremia, UTI (urinary tract infection) Patient Disposition: Home Condition: Stable Instructions: Antibiotic Form, Acute Kidney Injury (DC), Hyponatremia (ED), Weakness (ED), Urinary Tract Infection in Older Adults (ED) Additional Instructions: You had evidence of some mildly abnormal kidney function known as an acute kidney injury, LETTY. This is often due to decreased intake. Recommend drinking plenty of fluids. You already received IV fluids. You also have a urinary tract infection. You received 1st dose of antibiotic in the emergency department the rest of the course has been prescribed. Follow-up with your primary care physician. Return to the emergency department any new, worsening, or unmanaged symptoms. Patient Language: Upper Sorbian Prescriptions: New cephalexin 500 mg tablet 500 mg PO TID 5 Days Qty: 15 0RF No Action polyethylene glycol 3350 [Miralax] 17 gram/dose powder 17 g PO DAILY PRN (Reason: constipation) levothyroxine 100 mcg capsule 100 mcg PO DAILY cholecalciferol (vitamin D3) 25 mcg (1,000 unit) capsule 25 mcg PO DAILY mecobalamin (vitamin B12) 1,000 mcg tablet,chewable 1,000 mcg PO DAILY tramadol 50 mg tablet 50 mg PO Q6H PRN (Reason: pain) Qty: 60 0RF bupropion HCl 300 mg tablet extended release 24 hr See Rx Instructions .ROUTE .COMPLEX Qty: 90 1RF Dose Instruction: TAKE 1 TABLET BY MOUTH EVERY MORNING Rx Instructions: TAKE 1 TABLET BY MOUTH EVERY MORNING amlodipine 5 mg tablet 5 mg PO DAILY Qty: 90 1RF losartan 100 mg tablet 100 mg PO DAILY Qty: 90 1RF lovastatin 10 mg tablet 10 mg PO DAILY Qty: 90 1RF Follow-up/Referrals: Karine Schneider DO [Primary Care Provider, [facility]] Time of Disposition: 15:34
[2024-11-28 12:40] LABS: Add Urine Microscopic? YES; Appearance Urine Turbid (Clear); Glucose Urine UA Negative (Negative); Leukocyte Esterase Ur 3+ LEU/UL (Negative); Need Manual Microscopic Reviewed; Nitrate Urine Negative (Negative); Specific Grav Ur 1.021 (1.001-1.035)
[2024-11-28 12:51] LABS: Creatine Kinase 66 U/L (30-135); Magnesium 2.2 mg/dL (1.6-2.3)
[2024-11-28 12:58] LABS: Troponin I < 0.012 ng/mL (0.000-0.034)
[2024-11-28 13:17] LABS: Thyroid Stimulating Hormone 1.960 uIU/mL (0.465-4.680)
[2024-11-28] MEDS: SODIUM CHLORIDE 0.9% IV 1,000 ML 999 ML IV CONT (13:47)
[2024-11-28] MEDS: cefTRIAXone 1 GM in SODIUM CHLORIDE 0.9% IV 50 ML 100 ML IVPB (13:47)
[2024-11-28 15:37] LABS: Influenza A QL RT-PCR Negative (Negative); Influenza B QL RT-PCR Negative (Negative); RSV RNA, RT-PCR Negative (Negative); SARS-CoV-2 RNA PCR Negative (Negative)
== END 2024-11-28 15:55 | disposition home or self-care (01) ==
PROVIDERS: Emergency Medicine; Emergency Provider Student in an Organized Health Care Education/Training Program; PCP Family Medicine
DX: N39.0 Urinary tract infection, site not specified (principal); E87.1 Hypo-osmolality and hyponatremia; R53.1 Weakness; R63.0 Anorexia; I10 Essential (primary) hypertension; F17.210 Nicotine dependence, cigarettes, uncomplicated; Z20.822 Contact with and (suspected) exposure to COVID-19
CPT/HCPCS: 36415; 71045; 80053; 81001; 82550; 83735; 84443; 84484; 85025; 87077; 87086; 87186; 87637; 93005; 96361; 96365; 99284; J0696; J7030

== ENCOUNTER 2024-12-17 08:46 | Outpatient (CLI) | payer MEDICARE, SELFPAY ==
--- OUTSIDE RECORDS SUMMARY | 2009-03-25 04:45 | XMS_ITS | Continuity of Care Document ---
Author Organization [facility] Address [address] [facility] [address] [facility] [address] [place] [address] Phone Care Team Providers Care Rn Clinical Resource Name Role Phone Gorge Gunderson Unavailable Unavailable Procedures Procedure Date Eye Exam, New Patient Refraction Advance Directives Directive Yes / No Effective Date File Name No Information Encounters Encounter Description Practice Location Reason(s) For Visit Diagnoses Date Provider Providers Copied on Encounter [facility], [address], [place], [place], [id number], [place] tel:[phone] [facility] No Information [address] 0 Neptali Pennington. [address] [facility] [address], [address], [place]. tel:[phone] Family History Family Member Type Diagnosis Age At Onset No Information Payers Payer name Insurance type Covered democrat ID Authoriza tion(s) Medicare [facility] [id number] BCBS [place] Commercial [id number] Social History Type Description Quantity Date Captured [...]
--- OUTSIDE RECORDS SUMMARY | 2024-12-17 08:58 | XMS_ITS | Clinical Summary ---
Author Organization [facility] Address [address] [place] [phone] Care Team Providers Care Speech And Language Clinician Name Role Phone Luis Zaman MD Primary Care Provider [phone] Allergies Active Allergy Reactions Criticality Noted Date [...] Department Care Team Description 11/13/2024 Results Follow-Up [facility] [address] [address] Valerie Ansari MD TSH, T4, free 09/30/2024 Telephone [facility] of [address] [address] Valerie Ansari MD Review Medications 09/28/2024 9:15 AM CDT Office Visit [facility] Diabetes and Endocrinology [address] [place] [phone] Valerie Ansari MD Postablative hypothyroidism (Primary [...] on file Legal Sex Female 7:21 PM HIDE PASTER Gender Identity Not on file Sexual Orientation Not on file Obstetrics History Last Filed Vital Signs Vital Sign Reading Time Taken Comments Blood Pressure 130/80 09/28/2024 9:17 AM CDT Pulse 60 09/28/2024 9:17 AM CDT Temperature - - Respiratory Rate 15 09/28/2024 9:17 AM CDT Oxygen Saturation 99% 05/08/2023 11:01 AM HIDE PASTER Inhaled Oxygen Concentration - - Weight 59 [...] Routine 09/24/2023 EGFR Routine 04/18/2018 11:11 AM HIDE PASTER LIPID PANEL Routine 03/08/2014 10:57 AM HIDE PASTER from Last 3 Months or Most Recently [...] Result - Final Performing Organization Address City/[facility]/ZIP Co de Phone Number EXTERNAL LAB * HM HEMOGLOBIN A1C (09/24/2023) SCRIBED Hemoglobin A1c 6.1 % EXTERNAL LAB 09/24/2023 Historical Provider HEALTH MAINTENANCE Final Result Performing Organization Address [facility] Co de Phone Number EXTERNAL LAB * eGFR (04/18/2018 11:11 AM HIDE PASTER) eGFR 50 mL/min/1.7 3 m2 JENNY BARONE (RADHA) Comment: Interpretive Data Reference Interval Normal >/= 90 mL/min/1.73m2 Mildly decreased* 60 - 89 mL/min/1.73m2 Mildly to moderately decreased 45 - 59 mL/min/1.73m2 Moderately to severely decreased 30 - 44 mL/min/1.73m2 Severely decreased 15 - 29 mL/min/1.73m2 Kidney Failure < 15 mL/min/1.73m2 *Relative to young adult level If -[place] multiply value by 1.16. Estimated glomerular filtration [...] 2015. Blood specimen (specimen) 04/18/2018 11:11 AM HIDE PASTER 04/18/2018 2:14 PM HIDE PASTER Narrative JENNY BARONE (RADHA) - 04/18/2018 2:43 PM HIDE PASTER Alban Sanchez MD LAB BLOOD ORDERABLES Final R esult Performing Organization Address [facility] Co de Phone Number JENNY BARONE (RADHA) 1 [facility] Department [place] [address] * (ABNORMAL) Lipid panel (03/08/2014 10:57 AM HIDE PASTER) Triglycerides 74 0 - 199 mg/dL Comment:12 [...] developing heart disease. 03/08/2014 10:5 7 AM HIDE PASTER 03/08/2014 11:22 AM [facility] Narrative [facility] HISTORICAL RESULTS - 03/08/2014 11:53 AM HIDE PASTER 12P Alban Sanchez MD LAB BLOOD ORDERABLES Final R esult Performing Organization Address [facility]/ZIP Co de Phone Number [facility] HISTORICAL RESULTS from Last 3 Months or Most Recently Relevant to Health Maintenance Insurance MEDICARE MEDICARE [facility] MEDICARE [facility] MEDICARE SUPPLEMENT Care Teams Speech And Language Clinician Relationship Specialty Start Date End Date Luis Zaman MD [facility] [place] [address] PCP - General 04/17/16
--- OUTSIDE RECORDS SUMMARY | 2024-12-17 08:58 | XMS_ITS | Clinical Summary ---
Author Organization [employer] [facility] [facility] Address [address] [place] [address] Care Team Providers Care Hospital Wellness Coordinator Name Role Phone Luis Zaman MD Primary Care Provider [phone] Allergies Active Allergy Reactions Criticality Noted Date [...] 12/08/2013 Insurance MEDICARE PART A AND B [facility] SUPP Care Teams Hospital Wellness Coordinator Relationship Specialty Start Date End Date Luis Zaman MD PCP - General Family Practice 09/22/18
--- OUTSIDE RECORDS SUMMARY | 2024-12-17 08:58 | XMS_ITS | Clinical Summary ---
Author Organization [facility] Address [address] [place] [phone] Phone Care Team Providers Care Equipment Maint Tech Name Role Phone Luis Zaman MD Primary Care Provider [phone] Allergies Active Allergy Reactions Criticality Noted Date [...] on file Legal Sex Female 8:40 AM [facility] Gender Identity Not on file Sexual Orientation Not on file Last Filed Vital Signs Vital Sign Reading Time Taken Comments Blood Pressure 128/60 10/04/2021 10:11 AM CDT Pulse 72 10/04/2021 10:11 AM CDT Temperature 36.6 C (97.8 F) 10/04/2021 10:11 AM CDT Respiratory Rate 20 05/23/2016 12:01 AM PRESS ROOM SUPERVISOR Oxygen Saturation - - Inhaled Oxygen Concentration [...] (#1) 2024 0, 01/07/2015, 12/08/2013 Insurance MEDICARE [facility] Care Teams Equipment Maint Tech Relationship Specialty Start Date End Date Luis Zaman MD [facility] [place] [address] PCP - General 05/21/18
[2024-12-17 13:04] LABS: Hematocrit 38.1 % (37.0-47.0); Hemoglobin 12.1 g/dL (12.0-15.0); Mean Corpuscular HGB Conc 31.8 g/dl (32-36); Mean Corpuscular Hemoglobin 30.5 pg (26-34); Mean Corpuscular Volume 96.0 fl (80-100); Platelet Count Result 256 k/mm3 (150-375); Red Blood Count 3.97 M/mm3 (4.2-5.4); White Blood Count 5.3 K/mm3 (4.5-10.0)
[2024-12-17 13:18] LABS: Alanine Aminotransferase 19 U/L (6-35); Albumin Level 3.9 g/dL (3.5-5.1); Alkaline Phosphatase 79 U/L (38-126); Anion Gap 9 mmol/L (4-12); Aspartate Amino Transferase 38 U/L (14-36); Bilirubin,Total 0.5 mg/dL (0.2-1.3); Blood Urea Nitrogen 15 mg/dL (7-17); Calcium 9.0 mg/dL (8.4-10.2); Carbon Dioxide 24 mmol/L (22-30); Chloride 103 mmol/L (98-107); Cholesterol 179 mg/dL (0-200); Estimated Glomerular Filt Rate 49; Glucose 99 mg/dL (65-110); HDL Direct 54 mg/dL; Potassium 3.6 mmol/L (3.4-5.0); Sodium 136 mmol/L (137-145); Total Protein 7.1 g/dL (6.3-8.2); Triglycerides 73 mg/dL (<150)
[2024-12-17 13:37] LABS: Free T4 Free Thyroxine 1.31 ng/dL (0.78-2.19)
[2024-12-17 13:59] LABS: Thyroid Stimulating Hormone 3.260 uIU/mL (0.465-4.680)
[2024-12-17 15:52] LABS: Hemoglobin A1C 6.2 % (<5.7)
== END 2024-12-17 08:47 | disposition home or self-care (01) ==
PROVIDERS: PCP Family Medicine; Visit Provider Internal Medicine Nephrology
DX: E78.5 Hyperlipidemia, unspecified (principal); I12.9 Hypertensive chronic kidney disease with stage 1 through stage 4 chronic kidney disease, or unspecified chronic kidney disease; N18.31 Chronic kidney disease, stage 3a; E55.9 Vitamin D deficiency, unspecified; E07.9 Disorder of thyroid, unspecified; R73.03 Prediabetes; Z79.899 Other long term (current) drug therapy
CPT/HCPCS: 36415; 80053; 80061; 82306; 83036; 84439; 84443; 85027